=== PATIENT | male | born 1950 | race Caucasian/White ===

== ENCOUNTER 2018-01-02 17:10 | Inpatient (IN) | payer MEDICARE, OTHER ==
[2018-01-02 17:44] VITALS: BMI 27.8
[2018-01-02] MEDS ORDERED: Sodium Chloride 0.9% 500 ML IV ONE (17:46)
--- NOTE | 2018-01-02 17:50 | ED PDOC ---
Arrival/HPI - General Time Seen by Provider: 01/02/18 17:19 Historian: Patient, Family - History of Present Illness Time/Duration: 1 week Symptom Onset: Gradual Symptom Course: Worsening Severity Level: Severe Activities at Onset: Rest Associated Symptoms (Text): 01/02/18 17:48 Patient complains of a rectal mass for approximately one week. 3 days ago he was seen in the office by Dr. Nesbitt and had a right perirectal abscess incision and drainage. He was scheduled for follow-up tomorrow, but developed fever and pain and severe generalized weakness and fatigue over the last 2 days and presents to the emergency department for evaluation and treatment. He has poor by mouth intake. There has been some diarrhea. Some nausea but no vomiting. No genitourinary symptoms. Mild nonproductive cough. Past Medical History - Infectious Disease Hx of Infectious Diseases: None - Tetanus Immunization Tetanus Immunization: Unknown - Cardiac Hx Hypertension: Yes - Pulmonary Hx Respiratory Disorders: No - Neurological Hx Neurological Disorder: No - HEENT Hx HEENT Disorder: No - Renal Hx Renal Disorder: No - Endocrine/Metabolic Hx Diabetes Mellitus Type 2: Yes - Hematological/Oncological Hx Blood Disorders: No - Integumentary Hx Dermatological Disorder: No - Musculoskeletal/Rheumatological Hx Musculoskeletal Disorders: No Hx Falls: No - Gastrointestinal Hx Gastrointestinal Disorders: No - Genitourinary/Gynecological Hx Genitourinary Disorders: No - Psychiatric Hx Psychophysiologic Disorder: No Hx Substance Use: No - Past Surgical History Past Surgical History: Unable to Obtain - Surgical History Hx Amputation: No Hx Appendectomy: No Hx Cholecystectomy: No Hx Gastric Bypass Surgery: No Hx Hysterectomy: No Hx Inguinal Hernia Repair: No Hx Joint Replacement: No Hx Kidney Transplant: No Hx Liver Transplant: No Hx Mastectomy: No Hx Musculoskeletal Surgery: No Hx Open Heart Surgery: No Hx Orthopedic Surgery: No Hx Splenectomy: No Hx Valve Replacement: No - Anesthesia Hx Anesthesia Reactions: No - Suicidal Assessment Feels Threatened In Home Enviroment: No Family/Social History - Physician Review Nursing Documentation Reviewed: Yes Family/Social History: Unknown Family HX Smoking Status: Light Smoker < 10 Cigarettes Daily Hx Alcohol Use: No Hx Substance Use: No Allergies/Home Meds Allergies/Adverse Reactions: Allergies No Known Allergies Allergy (Verified 01/02/18 17:43) Review of Systems - Physician Review All systems were reviewed & negative as marked: Yes - Review of Systems Constitutional: Fatigue, Fevers Respiratory: Cough. absent: SOB, Sputum, Wheezing Cardiovascular: absent: Chest Pain, Palpitations, Syncope Gastrointestinal: Diarrhea, Nausea, Anorexia. absent: Abdominal Pain, Constipation, Vomiting Genitourinary Male: absent: Dysuria, Frequency, Hematuria Neurological: absent: Headache, Dizziness, Focal Weakness, Gait Changes Physical Exam Vital Signs Temp Pulse Resp BP Pulse Ox 01/02/18 19:15 98.4 F 91 H 20 144/87 97 01/02/18 17:44 98.3 F 101 H 18 161/101 H 98 Temperature: Afebrile Blood Pressure: Hypertensive Pulse: Regular Respiratory Rate: Normal Appearance: Positive for: Well-Appearing, Non-Toxic, Uncomfortable Pain Distress: Moderate Mental Status: Positive for: Alert and Oriented X 3 - Systems Exam Head: Present: Atraumatic, Normocephalic Pupils: Present: PERRL Extroacular Muscles: Present: EOMI Conjunctiva: Present: Normal Mouth: Present: Moist Mucous Membranes Pharnyx: No: ERYTHEMA, EXUDATE, TONSILS ENLARGED Neck: Present: Normal Range of Motion Respiratory/Chest: Present: Clear to Auscultation, Good Air Exchange. No: Respiratory Distress, Accessory Muscle Use Cardiovascular: Present: Regular Rate and Rhythm, Normal S1, S2. No: Murmurs Abdomen: No: Tenderness, Distention, Peritoneal Signs, Rebound, Guarding Rectal: Present: Other (Unable to tolerate penetration. Tender right perirectal abscess with serosanguineous and purulent drainage) Back: Present: Normal Inspection Upper Extremity: Present: Normal Inspection. No: Cyanosis, Edema Lower Extremity: Present: Normal Inspection. No: Edema Neurological: Present: GCS=15, CN II-XII Intact, Speech Normal, Motor Func Grossly Intact Skin: Present: Rashes (Chronic psoriatic rash) Psychiatric: Present: Alert, Oriented x 3, Normal Insight, Normal Concentration Medical Decision Making ED Course and Treatment: 01/02/18 18:37 Chest X-ray: Creator : Walker Jernigan MD IMPRESSION: No active disease. No significant interval change compared to the prior examination(s). 01/02/18 20:44 Surgery resident will admit to Dr. Nesbitt service - Lab Interpretations Lab Results: 01/02/18 18:00 01/02/18 18:00 Lab Results 01/02/18 19:25: Urine Color Straw, Urine Appearance Clear, Urine pH 7.0, Ur Specific [place] <= 1.005, Urine Protein Negative, Urine Glucose (UA) Negative, Urine Ketones Negative, Urine Blood Negative, Urine Nitrate Negative, Urine Bilirubin Negative, Urine Urobilinogen 0.2, Ur Leukocyte Esterase Negative 01/02/18 18:36: pO2 52, VBG pH 7.48 H, VBG pCO2 37.0 L, VBG HCO3 27.6, VBG Total CO2 28.7 H, VBG O2 Sat (Calc) 92.7 H, VBG Base Excess 4.0 H, VBG Potassium 3.5 L, Glucose 126 H, Lactate 1.4, FiO2 21.0, Sodium 136.0, Chloride 101.0, Venous Blood Potassium 3.5 L 01/02/18 18:00: Sodium 138, Potassium 3.5 L, Chloride 101, Carbon Dioxide 26, Anion Gap 15, BUN 10, Creatinine 0.7 L, Est GFR ( Amer) > 60, Est GFR ( Non-Af Amer) > 60, Random Glucose 120 H, Calcium 9.9, Magnesium 1.8, Total Bilirubin 0.6, AST 72 H, ALT 81 H, Alkaline Phosphatase 82, Total Protein 6.8, Albumin 3.8, Globulin 3.0, Albumin/Globulin Ratio 1.2 01/02/18 18:00: PT 11.6, INR 1.02, APTT 33.6 01/02/18 18:00: WBC 9.3 D, RBC 4.65, Hgb 14.1, Hct 40.6 L, MCV 87.3, MCH 30.3, MCHC 34.7, RDW 13.7, Plt Count 327, MPV 10.1, Gran % 73.4 H, Lymph % (Auto) 17.8 L, [place] % (Auto) 8.0 H, Eos % (Auto) 0.4 L, Baso % (Auto) 0.4, Gran # 6.84 H, Lymph # (Auto) 1.7, [place] # (Auto) 0.8 H, Eos # (Auto) 0.0, Baso # (Auto) 0.04 - RAD Interpretation Radiology Orders: 01/02/18 17:45 CHEST PORTABLE [RAD] Stat 01/02/18 18:05 PELVIS W/O PO OR IV CONTRAST [CT] Stat Chest one view as read by the radiologist shows cardiomegaly with no infiltrate and no effusion. CT scan of the pelvis as read by the V read radiology shows no acute findings. Crusher Operator: Radiologist - Medication Orders Current Medication Orders: Discontinued Medications Sodium Chloride (Sodium Chloride 0.9%) 500 mls @ 500 mls/hr IV ONCE ONE Stop: 01/02/18 18:45 Last Admin: 01/02/18 18:10 Dose: 500 mls/hr eMAR Start Stop Document 01/02/18 18:10 OCS (Rec: [facility]/02/18 18:10 [id number] Intravenous Solution Start Date 01/02/18 Start Time 18:10 End Date 01/02/18 End time 19:10 Total Infusion Time 60 Ketorolac Tromethamine (Toradol) 15 mg IVP ONCE ONE Stop: 01/02/18 18:01 Last Admin: 01/02/18 18:07 Dose: 15 mg MAR Pain Assessment Document 01/02/18 18:07 OCS (Rec: 01/02/18 18:09 [id number] Pain Reassessment Is this a pain reassessment? Yes Sleep Is patient sleeping during reassessment? No Presence of Pain Presence of Pain No Pain Scale Used Pain Scale Used Numeric Description Description Constant IVP Administration Document 01/02/18 18:07 OCS (Rec: 01/02/18 18:09 [id number] Charges for Administration # of IVP Administrations 1 Disposition/Present on Arrival - Present on Arrival Any Indicators Present on Arrival: No History of DVT/PE: No History of Uncontrolled Diabetes: No Urinary Catheter: No History of Decub. Ulcer: No History Surgical Site Infection Following: None - Disposition Have Diagnosis and Disposition been Completed?: Yes Diagnosis: Perirectal abscess Disposition: HOSPITALIZED Disposition Time: 20:44 Patient Plan: Observation Condition: GOOD Referrals: Yuri Albrecht MD [Primary Care Provider] - Follow up with primary
--- NOTE | 2018-01-02 18:09 | RAD ---
HISTORY: Sepsis Patient COMPARISON: 05/24/2015 FINDINGS: LUNGS: No active pulmonary disease. PLEURA: No significant pleural effusion identified, no pneumothorax apparent. CARDIOVASCULAR: Cardiomegaly. No evidence of acute, significant cardiovascular disease. Retrocardiac haziness likely technique/ artifact. OSSEOUS STRUCTURES: No significant abnormalities. VISUALIZED UPPER ABDOMEN: Normal. OTHER FINDINGS: None. IMPRESSION: No active disease. No significant interval change compared to the prior examination(s).
[2018-01-02 18:41] LABS: VENOUS BLOOD GAS PO2 52 mm/Hg (30-55); VENOUS BLOOD PH 7.48 (7.32-7.43)
[2018-01-02 18:56] LABS: BASO # 0.04 K/mm3 (0.0-2.0); BASO % 0.4 % (0.0-3.0); EOS % 0.4 % (1.5-5.0); GRAN # 6.84 (1.4-6.5); GRAN % 73.4 % (50.0-68.0); HEMOGLOBIN 14.1 g/dL (14.0-18.0); LYMPH # 1.7 (1.2-3.4); LYMPH % 17.8 % (22.0-35.0); MEAN CELL VOLUME 87.3 fl (80.0-105.0); MEAN CORPUSCULAR HEMOGLOBIN 30.3 pg (25.0-35.0); MEAN CORPUSCULAR HGB CONC 34.7 g/dl (31.0-37.0); MEAN PLATELET VOLUME 10.1 fl (7.0-11.0); MONO # 0.8 (0.1-0.6); RBC 4.65 10^6/uL (3.5-6.1); RED CELL DISTRIBUTION WIDTH 13.7 % (11.5-14.5); WHITE BLOOD COUNT 9.3 10^3/ul (4.5-11.0)
[2018-01-02 19:00] LABS: INR 1.02 (0.93-1.08); PARTIAL THROMBOPLASTIN TIME 33.6 Seconds (25.1-36.5); PROTHROMBIN TIME 11.6 SECONDS (9.4-12.5)
[2018-01-02 19:12] LABS: ALB/GLOB RATIO 1.2 (1.1-1.8); ALBUMIN 3.8 g/dL (3.0-4.8); ALT/SGPT 81 U/L (7-56); AST/SGOT 72 U/L (17-59); BLOOD UREA NITROGEN 10 mg/dL (7-21); CALCIUM 9.9 mg/dL (8.4-10.5); GFR AFRICAN-AMERICAN > 60; GFR NON-AFRICAN AMERICAN > 60
[2018-01-02 19:44] LABS: URINE BILIRUBIN NEGATIVE (NEGATIVE); URINE BLOOD NEGATIVE (NEGATIVE); URINE GLUCOSE (UA) NEGATIVE (NEGATIVE); URINE LEUKOCYTE ESTERASE NEGATIVE Leu/uL (NEGATIVE); URINE PROTEIN NEGATIVE mg/dL (<30 mg/dL); URINE UROBILINOGEN 0.2 E.U./dL (<1 E.U./dL)
[2018-01-02 19:45] LABS: URINE APPEARANCE CLEAR (CLEAR); URINE COLOR STRAW (YELLOW)
--- NOTE | 2018-01-02 21:01 | CP.PCM.HP ---
History of Present Illness - History of Present Illness History of Present Illness: H&P Surgery: Dr. Nesbitt CC: dontae-rectal pain, not feeling well HPI: Patient is a 67 y/o male w/ pmhx of DM, HTN, CAD and hemorrhoids who presents complaining of dontae-rectal pain x 3days. He reports seeing Dr. Nesbitt in office about 3 days ago for similar complaints. He was found to have a thrombosed external hemorrhoid which was lanced at that time. Patient was sent home with percocet for pain and Amoxicillin abx. Patient reports taking abx however over the past three days the pain was persistent with a pus like discharge from incision site. He reports subjective fevers and chills. He reports decreased appetite. He states that his last BM was today and was diarrhea. PMH: as above PSH: cardiac stent, denies taking ASA or plavix at home Social: reports smoking 5-6 cigs per day, denies ETOH or drug use Fam: noncontributory Present on Admission - Present on Admission Any Indicators Present on Admission: No Review of Systems - Review of Systems All systems: reviewed and no additional remarkable complaints except Review of Systems: unless stated in HPI - Constitutional Constitutional: Chills, Fever, Weakness - EENT Eyes: absent: Blurred Vision, Change in Vision Ears: absent: Disequilibrium, Dizziness Nose/Mouth/Throat: absent: Nasal Congestion, Nasal Trauma - Cardiovascular Cardiovascular: absent: Chest Pain, Dyspnea - Respiratory Respiratory: absent: Cough, Wheezing - Gastrointestinal Gastrointestinal: Constipation. absent: Abdominal Pain, Bloating, Fecal Incontinence, Hematochezia, Melena, Nausea, Vomiting - Genitourinary Genitourinary: absent: Hematuria, Pyuria - Musculoskeletal Musculoskeletal: absent: Joint Swelling, Muscle Weakness - Integumentary Integumentary: absent: Skin Ulcer, Sores - Neurological Neurological: absent: Disequilibrium, Dizziness - Psychiatric Psychiatric: absent: Anxiety, Depression - Endocrine Endocrine: absent: Polydipsia, Polyphagia - Hematologic/Lymphatic Hematologic: absent: Easy Bleeding, Easy Bruising Past Patient History - Infectious Disease Hx of Infectious Diseases: None - Tetanus Immunizations Tetanus Immunization: Unknown - Past Social History Smoking Status: Light Smoker < 10 Cigarettes Daily - CARDIAC Hx Hypertension: Yes - PULMONARY Hx Respiratory Disorders: No - NEUROLOGICAL Hx Neurological Disorder: No - HEENT Hx HEENT Problems: No - RENAL Hx Chronic Kidney Disease: No - ENDOCRINE/METABOLIC Hx Diabetes Mellitus Type 2: Yes - HEMATOLOGICAL/ONCOLOGICAL Hx Blood Disorders: No - INTEGUMENTARY Hx Dermatological Problems: No - MUSCULOSKELETAL/RHEUMATOLOGICAL Hx Musculoskeletal Disorders: No Hx Falls: No - GASTROINTESTINAL Hx Gastrointestinal Disorders: No - GENITOURINARY/GYNECOLOGICAL Hx Genitourinary Disorders: No - PSYCHIATRIC Hx Psychophysiologic Disorder: No Hx Substance Use: No - SURGICAL HISTORY Hx Amputation: No Hx Appendectomy: No Hx Cholecystectomy: No Hx Gastric Bypass Surgery: No Hx Hysterectomy: No Hx Joint Replacement: No Hx Kidney Transplant: No Hx Liver Transplant: No Hx Mastectomy: No Hx Musculoskeletal Surgery: No Hx Open Heart Surgery: No Hx Orthopedic Surgery: No Hx Splenectomy: No Hx Valve Replacement: No - ANESTHESIA Hx Anesthesia Reactions: No Meds Allergies/Adverse Reactions: Allergies Allergy/AdvReac Type Severity Reaction Status Date / Time No Known Allergies Allergy Verified 01/02/18 17:43 Physical Exam - Constitutional Appears: Non-toxic, No Acute Distress - Head Exam Head Exam: ATRAUMATIC, NORMOCEPHALIC - Eye Exam Eye Exam: EOMI, Normal appearance - ENT Exam ENT Exam: Mucous Membranes Moist - Respiratory Exam Respiratory Exam: NORMAL BREATHING PATTERN. absent: Respiratory Distress - Cardiovascular Exam Cardiovascular Exam: REGULAR RHYTHM. absent: Tachycardia - GI/Abdominal Exam GI & Abdominal Exam: Soft. absent: Distended, Tenderness - Rectal Exam Rectal Exam: absent: Bloody Stool, Fecal Impaction Additional comments: right inferior rectal incision noted with purulent exudate noted, no abscess collection palpation. Perirectal area is tender with erythema noted around incision site. sphincter good tone, no stool in rectal vault with internal hemorrhoids felt on inferior lateral wall. - Extremities Exam Extremities exam: Positive for: normal inspection. Negative for: calf tenderness - Neurological Exam Neurological exam: Alert, Oriented x3 - Psychiatric Exam Psychiatric exam: Normal Affect, Normal Mood - Skin Skin Exam: Dry, Normal Color, Warm Results - Vital Signs Recent Vital Signs: Last Vital Signs Temp 98.4 F 01/02/18 19:15 Pulse 91 H 01/02/18 19:15 Resp 20 01/02/18 19:15 BP 144/87 01/02/18 19:15 Pulse Ox 97 01/02/18 19:15 - Labs Result Diagrams: 01/02/18 18:00 01/02/18 18:00 Labs: Laboratory Results - last 24 hr 01/02/18 01/02/18 01/02/18 18:00 18:00 18:00 WBC 9.3 D RBC 4.65 Hgb 14.1 Hct 40.6 L MCV 87.3 MCH 30.3 MCHC 34.7 RDW 13.7 Plt Count 327 MPV 10.1 Gran % 73.4 H Lymph % (Auto) 17.8 L [place] % (Auto) 8.0 H Eos % (Auto) 0.4 L Baso % (Auto) 0.4 Gran # 6.84 H Lymph # (Auto) 1.7 [place] # (Auto) 0.8 H Eos # (Auto) 0.0 Baso # (Auto) 0.04 PT 11.6 INR 1.02 APTT 33.6 pO2 VBG pH VBG pCO2 VBG HCO3 VBG Total CO2 VBG O2 Sat (Calc) VBG Base Excess VBG Potassium Glucose Lactate FiO2 Sodium 138 Potassium 3.5 L Chloride 101 Carbon Dioxide 26 Anion Gap 15 BUN 10 Creatinine 0.7 L Est GFR ( Amer) > 60 Est GFR (Non-Af Amer) > 60 Random Glucose 120 H Calcium 9.9 Magnesium 1.8 Total Bilirubin 0.6 AST 72 H ALT 81 H Alkaline Phosphatase 82 Total Protein 6.8 Albumin 3.8 Globulin 3.0 Albumin/Globulin Ratio 1.2 Venous Blood Potassium Urine Color Urine Appearance Urine pH Ur Specific [place] Urine Protein Urine Glucose (UA) Urine Ketones Urine Blood Urine Nitrate Urine Bilirubin Urine Urobilinogen Ur Leukocyte Esterase 01/02/18 01/02/18 18:36 19:25 WBC RBC Hgb Hct MCV MCH MCHC RDW Plt Count MPV Gran % Lymph % (Auto) [place] % (Auto) Eos % (Auto) Baso % (Auto) Gran # Lymph # (Auto) [place] # (Auto) Eos # (Auto) Baso # (Auto) PT INR APTT pO2 52 VBG pH 7.48 H VBG pCO2 37.0 L VBG HCO3 27.6 VBG Total CO2 28.7 H VBG O2 Sat (Calc) 92.7 H VBG Base Excess 4.0 H VBG Potassium 3.5 L Glucose 126 H Lactate 1.4 FiO2 21.0 Sodium 136.0 Potassium Chloride 101.0 Carbon Dioxide Anion Gap BUN Creatinine Est GFR ( Amer) Est GFR (Non-Af Amer) Random Glucose Calcium Magnesium Total Bilirubin AST ALT Alkaline Phosphatase Total Protein Albumin Globulin Albumin/Globulin Ratio Venous Blood Potassium 3.5 L Urine Color Straw Urine Appearance Clear Urine pH 7.0 Ur Specific [place] <= 1.005 Urine Protein Negative Urine Glucose (UA) Negative Urine Ketones Negative Urine Blood Negative Urine Nitrate Negative Urine Bilirubin Negative Urine Urobilinogen 0.2 Ur Leukocyte Esterase Negative - Imaging and Cardiology CT scan - pelvis Additional comment: no abscess in pelvis or dontae-rectal area. evidence of cellulitic changes dontae- rectum Assessment & Plan - Assessment and Plan (Free Text) Assessment: 67 y/o male w/ dontae-rectal cellulitis s/p external hemorrhoid eloisa Plan: -failed outpatient abx, admit for observation and IV abx -start rocephin/flagy -ok for diet -d/c IVF -restart home meds -medical consult with primary physician Dr. Loera -Sitz baths BID -keep dontae-rectal area clean and dry -no need for surgical intervention at this time -ok for DVT ppx -d/w Dr. Laz Machado PGY3 - Date & Time Date: 01/02/18 Time: 21:07
[2018-01-02] MEDS: cefTRIAXone 1 gm 1 GM/100 ML BAG IVPB SCH (21:14)
[2018-01-03] MEDS: metroNIDAZOLE IV 500 mg/100 ml 500 MG/100 ML BAG IVPB SCH ×4 (00:54→21:37)
[2018-01-03] MEDS: Insulin Reg-LOW-Coverage SC SCH ×5 (00:55→22:00)
[2018-01-03 07:08] LABS: BASO # 0.04 K/mm3 (0.0-2.0); BASO % 0.5 % (0.0-3.0); EOS # 0.1 (0.0-0.7); EOS % 0.6 % (1.5-5.0); GRAN # 5.66 (1.4-6.5); GRAN % 68.2 % (50.0-68.0); HEMOGLOBIN 13.6 g/dL (14.0-18.0); LYMPH # 1.6 (1.2-3.4); LYMPH % 19.7 % (22.0-35.0); MEAN CELL VOLUME 87.4 fl (80.0-105.0); MEAN CORPUSCULAR HEMOGLOBIN 29.6 pg (25.0-35.0); MEAN CORPUSCULAR HGB CONC 33.9 g/dl (31.0-37.0); MEAN PLATELET VOLUME 9.5 fl (7.0-11.0); MONO # 0.9 (0.1-0.6); RBC 4.59 10^6/uL (3.5-6.1); RED CELL DISTRIBUTION WIDTH 13.8 % (11.5-14.5); WHITE BLOOD COUNT 8.3 10^3/ul (4.5-11.0)
--- NOTE | 2018-01-03 07:24 | CP.PCM.PN ---
Subjective - Date & Time of Evaluation Date of Evaluation: 01/03/18 Time of Evaluation: 07:20 - Subjective Subjective: Surgery Patient seen and examined. No acute events. Denies fever, diarrhea, nausea. C/O rectal pain. + ambulating. + void. Objective - Vital Signs/Intake and Output Vital Signs (last 24 hours): Temp Pulse Resp BP Pulse Ox 98.3 F 88 18 146/99 H 97 01/02/18 21:15 01/02/18 21:15 01/02/18 22:14 01/03/18 00:57 01/02/18 21:15 Intake and Output: 01/03/18 01/03/18 06:59 18:59 Output Total 150 Balance -150 - Medications Medications: Current Medications Acetaminophen (Tylenol 325mg Tab) 650 mg PO Q6 PRN PRN Reason: Pain, Mild (1-3) Docusate Sodium (Colace) 100 mg PO BID [facility] Enoxaparin Sodium (Lovenox) 40 mg SC DAILY [facility] PRN Reason: Protocol Glimepiride (Amaryl) 4 mg PO DAILY [facility] Hydrochlorothiazide (Hydrodiuril) 25 mg PO DAILY [facility] Metronidazole (Flagyl) 500 mg in 100 mls @ 100 mls/hr IVPB Q8 [facility] PRN Reason: Protocol Last Admin: 01/03/18 06:36 Dose: 100 mls/hr Ceftriaxone Sodium (Rocephin 1 Gram Ivpb) 1 gm in 100 mls @ 100 mls/hr IVPB DAILY [facility] PRN Reason: Protocol Last Admin: 01/02/18 21:14 Dose: 100 mls/hr Insulin Human Regular (Humulin R Low) 0 units SC ACHS [facility] PRN Reason: Protocol Last Admin: 01/03/18 00:55 Dose: Not Given Ketorolac Tromethamine (Toradol) 30 mg IVP Q6 PRN PRN Reason: Pain, moderate (4-7) Metformin HCl (Glucophage) 500 mg PO DAILY [facility] Metoprolol Tartrate (Lopressor) 50 mg PO BID [facility] Last Admin: 01/02/18 21:14 Dose: 50 mg Ondansetron HCl (Zofran Inj) 4 mg IVP Q6 PRN PRN Reason: Nausea/Vomiting - Labs Labs: 01/03/18 07:01 PT 11.6 SECONDS (9.4-12.5) 01/02/18 18:00 INR 1.02 (0.93-1.08) 01/02/18 18:00 APTT 33.6 Seconds (25.1-36.5) 01/02/18 18:00 - Constitutional Appears: No Acute Distress - Head Exam Head Exam: ATRAUMATIC, NORMAL INSPECTION, NORMOCEPHALIC - Eye Exam Eye Exam: EOMI, Normal appearance, PERRL Pupil Exam: NORMAL ACCOMODATION, PERRL - ENT Exam ENT Exam: Mucous Membranes Moist, Normal Exam - Neck Exam Neck Exam: Full ROM, Normal Inspection. absent: Lymphadenopathy - Respiratory Exam Respiratory Exam: Clear to Ausculation Bilateral, NORMAL BREATHING PATTERN - Cardiovascular Exam Cardiovascular Exam: REGULAR RHYTHM, +S1, +S2. absent: Murmur - GI/Abdominal Exam GI & Abdominal Exam: Soft, Normal Bowel Sounds. absent: Distended, Tenderness - Rectal Exam Rectal Exam: absent: Black Stool, Bloody Stool, Hemorrhoids, Fecal Impaction Additional comments: R perianal incision draining purulent fliuds. 1x1x0.5cm. No active bleeding - Extremities Exam Extremities Exam: Full ROM, Normal Capillary Refill, Normal Inspection. absent : Joint Swelling, Pedal Edema - Back Exam Back Exam: NORMAL INSPECTION - Neurological Exam Neurological Exam: Alert, Awake, CN II-XII Intact, Normal Gait, Oriented x3 - Psychiatric Exam Psychiatric exam: Normal Affect, Normal Mood - Skin Skin Exam: Erythema, Warm. absent: Dry, Intact, Normal Color Additional comments: 10x8cm eryhtema R buttucks
[2018-01-03 07:28] LABS: BLOOD UREA NITROGEN 11 mg/dL (7-21); CALCIUM 9.1 mg/dL (8.4-10.5); GFR AFRICAN-AMERICAN > 60; GFR NON-AFRICAN AMERICAN > 60
--- NOTE | 2018-01-03 09:38 | CT ---
PROCEDURE: CT Pelvis without contrast HISTORY: right perirectal mass COMPARISON: None. TECHNIQUE: Contiguous axial images of the pelvis . No intravenous or oral contrast given as requested. Coronal and sagittal reformats generated. Radiation dose: Total exam DLP = 305.43 mGy-cm. This CT exam was performed using one or more of the following dose reduction techniques: Automated exposure control, adjustment of the mA and/or kV according to patient size, and/or use of iterative reconstruction technique. FINDINGS: BLADDER: Unremarkable. No mass. REPRODUCTIVE ORGANS: Prostate gland appears moderately enlarged. VISUALIZED BOWEL: Mild fecal loading is seen throughout sigmoid colon. The rectum is collapsed and circumferential mural thickening is not excluded particularly at the mid and distal portions. Clinically correlate further. Perirectal and presacral fat appear grossly on remarkable. Normal-appearing appendix. PERITONEUM: Unremarkable, as visualized. No free fluid. No free air. LYMPH NODES: No gross pelvic side wall lymphadenopathy or peritoneal lymphadenopathy. BONES: There are a few small sclerotic densities which are nonspecific and medial bilateral iliac bones and anterior left iliac bone as well. VASCULATURE: Atherosclerotic inferior aortic iliac femoral vasculature is appreciated which is limited evaluation due lack of intravenous contrast. OTHER FINDINGS: None. IMPRESSION: Circumferential mural thickening is difficult to exclude due to rectal collapse at the mid inferior rectum with no perirectal fatty reaction or mass grossly appreciable. Presacral soft tissue is unremarkable as well. Further clinical correlation is advised. Enlarged prostate gland. A few small sclerotic densities are seen scattered infrequently at the medial bilateral iliac bones and anterior left iliac bone as well which are nonspecific and poorly characterized due to their sub cm size.
[2018-01-03] MEDS: cefTRIAXone 1 gm 1 GM/100 ML BAG IVPB SCH (10:08)
[2018-01-03] MEDS: Enoxaparin 40 mg Syringe SC SCH (10:09)
--- NOTE | 2018-01-04 05:42 | CON ---
DATE: 01/03/2018 REFERRING PHYSICIAN: Dr. Nesbitt. REASON FOR CONSULTATION: Diabetes type 2, hypertension and BPH management. CHIEF COMPLAINT AND HISTORY OF PRESENT ILLNESS: This is a 67-year-old male who is having rectal pain, he was having external hemorrhoids. The patient was seen initially by me and I have started the patient on antibiotics. He was also sent to Dr. Nesbitt for evaluation. The patient had thrombosed external hemorrhoids, which was . He had gone home with Percocet and antibiotics. He states that the pain continued over the last few days. He has been having pus coming from each site. The patient was admitted to the hospital for further management. The patient is currently comfortable. He states that the pain is there, but it is manageable. He has no fevers or chills. No nausea, no vomiting. ALLERGIES: NO KNOWN DRUG ALLERGIES. PAST MEDICAL HISTORY: As above, coronary artery disease with stenting. SOCIAL HISTORY: He does smoke about 5 to 6 cigarettes a day. Denies alcohol or drug use. FAMILY HISTORY: Noncontributory. PHYSICAL EXAMINATION: VITAL SIGNS: Temperature is 98.56, pulse is 78, blood pressure is 157/97, respirations 20, O2 saturation 98%. GENERAL: The patient lying in bed, uncomfortable, and in no acute distress. HEENT: Atraumatic and normocephalic. Anicteric sclerae. Moist mucosa. [place] conjunctivae. No oral lesions. NECK: No JVD, anterior and posterior adenopathy, thyromegaly, or bruits. CARDIOVASCULAR: S1 and S2 regular. No murmur, rubs, or gallop. LUNGS: Clear to auscultation bilaterally. No wheezes, rales, or rhonchi. ABDOMEN: Bowel sounds are positive. Soft, nontender and nondistended. No hepatosplenomegaly. No rebound and no guarding. EXTREMITIES: No cyanosis, clubbing, or edema. NEUROLOGIC: No facial asymmetry. Tongue is midline. No uvula deviation. Power is 5/5 upper extremity and lower extremity. Sensation intact in upper extremity and lower extremity. PSYCHIATRIC: She is awake, alert and oriented x3. No anxiety or depression. She has normal affect. GENITOURINARY: No CVA tenderness. VASCULAR: 2+ pulses in the carotid pulses and pedal pulses. SKIN: No erythema or nodules. SPINE: Shows normal curvature. LABORATORY DATA: Labs have been reviewed. White count of 9.3, hemoglobin is 14.1. The patient has chemistry that shows creatinine of 0.8. Urine shows blood is negative, nitrates are negative and bilirubin is negative. Chest x-ray, no active disease. CT of the pelvis done shows circumferential middle thickening in the rectal area, also enlarged prostate. ASSESSMENT: 1. Perirectal cellulitis. 2. External hemorrhoids, status post incision. 3. Diabetes type 2. 4. Benign prostatic hypertrophy. PLAN: The patient is currently comfortable. He is on insulin, he is on metformin for diabetes. The patient is on Flagyl. He is on Amaryl for his diabetes. He is on Rocephin for antibiotics. The patient is on a heart-healthy diet. He is going to getting Sitz bath. We will continue to follow as needed. Yuri Albrecht MD
[2018-01-04] MEDS: metroNIDAZOLE IV 500 mg/100 ml 500 MG/100 ML BAG IVPB SCH ×3 (06:00→21:34)
[2018-01-04] MEDS: Insulin Reg-LOW-Coverage SC SCH ×4 (08:08→21:48)
[2018-01-04] MEDS: cefTRIAXone 1 gm 1 GM/100 ML BAG IVPB SCH (09:07)
[2018-01-04] MEDS: Enoxaparin 40 mg Syringe SC SCH (09:08)
--- NOTE | 2018-01-04 10:12 | PN ---
DATE: SUBJECTIVE: The patient has no complaints of any chest pain, no shortness of breath, no headaches. He says the pain is controlled. PHYSICAL EXAMINATION: VITAL SIGNS: Temperature is 98.2, pulse of 84, blood pressure 114/74, respirations 20. GENERAL: The patient is lying in bed, flat, comfortable. HEENT: No oral lesion. Anicteric sclerae. Moist mucosa. NECK: No JVD, adenopathy, or thyromegaly. CARDIOVASCULAR: S1 and S2, regular. No murmurs, rubs, or gallops. LUNGS: Clear to auscultation bilaterally. No wheeze, rales, or rhonchi. ABDOMEN: Bowel sounds are positive, soft, nontender and nondistended. EXTREMITIES: No cyanosis, clubbing or edema. LABS: White count of 8.3, hemoglobin 13.6. Creatinine 0.8. ASSESSMENT: 1. Perirectal cellulitis. 2. External hemorrhoids status post incision. 3. Diabetes type 2. 4. Benign prostatic hypertrophy. PLAN: The patient is currently on Amaryl and metformin for his diabetes. He is on insulin sliding scale. The patient's fingersticks have been controlled. He is on Colace for constipation. He is on hydrochlorothiazide for his hypertension. He is on Rocephin for antibiotics. He is on a heart-healthy diet. He has blood cultures and wound cultures that are being done. The patient's blood cultures are negative. The patient's wound cultures, final cultures are pending. Yuri Albrecht MD
--- NOTE | 2018-01-04 10:33 | CP.PCM.PN ---
Subjective - Date & Time of Evaluation Date of Evaluation: 01/04/18 Time of Evaluation: 10:32 - Subjective Subjective: Surgery: Dr. Nesbitt Patient reports feeling better today. He reports improvement of pain. Denies f/c /n/v. Complains of drainage from the rectal area, overall decreased. Objective - Vital Signs/Intake and Output Vital Signs (last 24 hours): Temp Pulse Resp BP Pulse Ox 97.8 F 69 18 139/86 97 01/04/18 08:23 01/04/18 09:09 01/04/18 08:23 01/04/18 09:09 01/04/18 08:23 Intake and Output: 01/04/18 01/04/18 06:59 18:59 Intake Total 640 Balance 640 - Medications Medications: Current Medications Acetaminophen (Tylenol 325mg Tab) 650 mg PO Q6 PRN PRN Reason: Pain, Mild (1-3) Docusate Sodium (Colace) 100 mg PO BID [facility] Last Admin: 01/04/18 09:08 Dose: 100 mg Enoxaparin Sodium (Lovenox) 40 mg SC DAILY [facility] PRN Reason: Protocol Last Admin: 01/04/18 09:08 Dose: 40 mg Glimepiride (Amaryl) 4 mg PO DAILY [facility] Last Admin: 01/04/18 09:08 Dose: 4 mg Hydrochlorothiazide (Hydrodiuril) 25 mg PO DAILY [facility] Last Admin: 01/04/18 09:08 Dose: 25 mg Metronidazole (Flagyl) 500 mg in 100 mls @ 100 mls/hr IVPB Q8 [facility] PRN Reason: Protocol Last Admin: 01/04/18 06:00 Dose: 100 mls/hr Ceftriaxone Sodium (Rocephin 1 Gram Ivpb) 1 gm in 100 mls @ 100 mls/hr IVPB DAILY [facility] PRN Reason: Protocol Last Admin: 01/04/18 09:07 Dose: 100 mls/hr Micafungin Sodium 100 mg/ (Sodium Chloride) 100 mls @ 100 mls/hr IV DAILY [facility] PRN Reason: Protocol Stop: 01/11/18 10:01 Insulin Human Regular (Humulin R Low) 0 units SC ACHS [facility] PRN Reason: Protocol Last Admin: 01/04/18 08:08 Dose: 1 units Ketorolac Tromethamine (Toradol) 30 mg IVP Q6 PRN PRN Reason: Pain, moderate (4-7) Metformin HCl (Glucophage) 500 mg PO DAILY [facility] Last Admin: 01/04/18 09:08 Dose: 500 mg Metoprolol Tartrate (Lopressor) 50 mg PO BID [facility] Last Admin: 01/04/18 09:09 Dose: 50 mg Ondansetron HCl (Zofran Inj) 4 mg IVP Q6 PRN PRN Reason: Nausea/Vomiting Last Admin: 01/03/18 18:54 Dose: 4 mg Tamsulosin HCl (Flomax) 0.4 mg PO DAILY [facility] Last Admin: 01/04/18 09:08 Dose: 0.4 mg - Labs Labs: PT 11.6 SECONDS (9.4-12.5) 01/02/18 18:00 INR 1.02 (0.93-1.08) 01/02/18 18:00 APTT 33.6 Seconds (25.1-36.5) 01/02/18 18:00 - Constitutional Appears: Non-toxic, No Acute Distress - Head Exam Head Exam: ATRAUMATIC, NORMOCEPHALIC - Eye Exam Eye Exam: EOMI, Normal appearance - ENT Exam ENT Exam: Mucous Membranes Moist - Respiratory Exam Respiratory Exam: NORMAL BREATHING PATTERN. absent: Respiratory Distress - Cardiovascular Exam Cardiovascular Exam: REGULAR RHYTHM. absent: Tachycardia - GI/Abdominal Exam GI & Abdominal Exam: Soft. absent: Distended, Tenderness - Rectal Exam Additional comments: seropurulent drainage from inferior rectal incision, less cellulitis - Extremities Exam Extremities Exam: Normal Inspection. absent: Calf Tenderness - Neurological Exam Neurological Exam: Alert, Awake - Psychiatric Exam Psychiatric exam: Normal Affect, Normal Mood - Skin Skin Exam: Dry, Normal Color, Warm Assessment and Plan - Assessment and Plan (Free Text) Assessment: 67 y/o male s/p eloisa of thrombosed hemorrhoid Plan: -cont dry gauze to dontae-rectal area -cont abx -await ID recs -sitz baths -further recs per Dr. Laz Machado PGY3
[2018-01-04] MEDS: Micafungin 100 MG in Sodium Chloride 0.9% 100 ML IV SCH (11:00)
--- NOTE | 2018-01-04 15:10 | CP.PCM.CON ---
History of Present Illness - History of Present Illness History of Present Illness: 67 year old male with PMH of DM, HTN, CAD, hemorrhoids, came in complaining of continued pain in the perirectal area, malaise and generalized weakness for about 3 days. He was initially seen by Surgery for a thrombosed hemorrhoid which was incised and he was sent home with pain meds and Amoxicillin. He noted pus-like discharge coming from the perirectal area, with associated subjective fever and chills. He also has anorexia. He denies headache or dizziness, no cough or rhinorrhea, no sore throat, no abdominal pain, no diarrhea, no chest pain, no SOB. Blood cx taken on admission is showing yeast. There are gram negative bacilli and gram negative bacilli in the perirectal wound. Infectious Diseases consult is requested to further evaluate and manage. Review of Systems - Review of Systems All systems: reviewed and no additional remarkable complaints except (as per HPI ) Past Patient History - Infectious Disease Hx of Infectious Diseases: None - Tetanus Immunizations Tetanus Immunization: Unknown - Past Social History Smoking Status: Current Some Days Smoker - CARDIAC Hx Cardia Arrhythmia: Yes Hx Hypertension: Yes - PULMONARY Hx Pneumonia: Yes - NEUROLOGICAL Hx Neurological Disorder: No - HEENT Hx HEENT Problems: No - RENAL Hx Chronic Kidney Disease: No - ENDOCRINE/METABOLIC Hx Diabetes Mellitus Type 2: Yes - HEMATOLOGICAL/ONCOLOGICAL Hx Blood Disorders: No - INTEGUMENTARY Hx Dermatological Problems: No - MUSCULOSKELETAL/RHEUMATOLOGICAL Hx Falls: Yes - GASTROINTESTINAL Hx Gastroesophageal Reflux: Yes - GENITOURINARY/GYNECOLOGICAL Hx Genitourinary Disorders: No - PSYCHIATRIC Hx Psychophysiologic Disorder: No Hx Substance Use: No - SURGICAL HISTORY Hx Cardiac Catheterization: Yes - ANESTHESIA Hx Anesthesia Reactions: No Meds Allergies/Adverse Reactions: Allergies Allergy/AdvReac Type Severity Reaction Status Date / Time No Known Allergies Allergy Verified 01/02/18 17:43 - Medications Medications: Current Medications Acetaminophen (Tylenol 325mg Tab) 650 mg PO Q6 PRN PRN Reason: Pain, Mild (1-3) Docusate Sodium (Colace) 100 mg PO BID [facility] Last Admin: 01/03/18 17:04 Dose: Not Given Enoxaparin Sodium (Lovenox) 40 mg SC DAILY [facility] PRN Reason: Protocol Last Admin: 01/03/18 10:09 Dose: 40 mg Glimepiride (Amaryl) 4 mg PO DAILY [facility] Last Admin: 01/03/18 10:11 Dose: 4 mg Hydrochlorothiazide (Hydrodiuril) 25 mg PO DAILY [facility] Last Admin: 01/03/18 10:10 Dose: 25 mg Metronidazole (Flagyl) 500 mg in 100 mls @ 100 mls/hr IVPB Q8 [facility] PRN Reason: Protocol Last Admin: 01/04/18 06:00 Dose: 100 mls/hr Ceftriaxone Sodium (Rocephin 1 Gram Ivpb) 1 gm in 100 mls @ 100 mls/hr IVPB DAILY [facility] PRN Reason: Protocol Last Admin: 01/03/18 10:08 Dose: 100 mls/hr Insulin Human Regular (Humulin R Low) 0 units SC ACHS [facility] PRN Reason: Protocol Last Admin: 01/04/18 08:08 Dose: 1 units Ketorolac Tromethamine (Toradol) 30 mg IVP Q6 PRN PRN Reason: Pain, moderate (4-7) Metformin HCl (Glucophage) 500 mg PO DAILY [facility] Last Admin: 01/03/18 10:09 Dose: 500 mg Metoprolol Tartrate (Lopressor) 50 mg PO BID [facility] Last Admin: 01/03/18 17:01 Dose: 50 mg Ondansetron HCl (Zofran Inj) 4 mg IVP Q6 PRN PRN Reason: Nausea/Vomiting Last Admin: 01/03/18 18:54 Dose: 4 mg Tamsulosin HCl (Flomax) 0.4 mg PO DAILY [facility] Last Admin: 01/03/18 10:09 Dose: 0.4 mg Physical Exam - Constitutional Appears: Non-toxic - Head Exam Head Exam: NORMAL INSPECTION - ENT Exam ENT Exam: Mucous Membranes Moist - Neck Exam Neck exam: Negative for: Lymphadenopathy, Meningismus - Respiratory Exam Respiratory Exam: absent: Rales, Rhonchi - Cardiovascular Exam Cardiovascular Exam: +S1, +S2 - GI/Abdominal Exam GI & Abdominal Exam: Soft. absent: Tenderness - Back Exam Additional comments: perirectal area with dressings in place Results - Vital Signs Recent Vital Signs: Last Vital Signs Temp 97.8 F 01/04/18 08:23 Pulse 69 01/04/18 08:23 Resp 18 01/04/18 08:23 BP 139/86 01/04/18 08:23 Pulse Ox 97 01/04/18 08:23 - Labs Result Diagrams: 01/03/18 07:01 01/03/18 07:01 Labs: Laboratory Results - last 24 hr 01/03/18 01/03/18 01/04/18 16:04 21:44 06:56 POC Glucose (mg/dL) 106 103 169 H Assessment & Plan - Assessment and Plan (Free Text) Plan: Assessment Fungemia, source unclear perirectal abscess with associated thrombosed hemorrhoids DM HTN CAD hemorrhoids Plan Continue Rocephin, Flagyl and added MYcamine pending identification and sensitivities of the bacteria in the perirectral abscess follow up identification of the yeast in the blood - will repeat blood cx will monitor clinically
[2018-01-05] MEDS: metroNIDAZOLE IV 500 mg/100 ml 500 MG/100 ML BAG IVPB SCH ×3 (06:26→22:03)
[2018-01-05] MEDS: cefTRIAXone 1 gm 1 GM/100 ML BAG IVPB SCH (10:11)
[2018-01-05] MEDS: Insulin Reg-LOW-Coverage SC SCH ×4 (10:12→22:01)
[2018-01-05] MEDS: Enoxaparin 40 mg Syringe SC SCH (10:12)
[2018-01-05] MEDS: Micafungin 100 MG in Sodium Chloride 0.9% 100 ML IV SCH (11:36)
--- NOTE | 2018-01-05 12:13 | CP.PCM.PN ---
Subjective - Date & Time of Evaluation Date of Evaluation: 01/05/18 Time of Evaluation: 12:11 - Subjective Subjective: Surgery. REctal pain improved. No more draining. Denies Fever, nausea, diarrhea. TOlerating diet. + ambulating. + void Objective - Vital Signs/Intake and Output Vital Signs (last 24 hours): Temp Pulse Resp BP Pulse Ox 97.9 F 70 18 136/93 H 99 01/05/18 06:00 01/05/18 10:13 01/05/18 06:00 01/05/18 10:13 01/05/18 06:00 Intake and Output: 01/05/18 01/05/18 06:59 18:59 Intake Total 1260 Balance 1260 - Medications Medications: Current Medications Acetaminophen (Tylenol 325mg Tab) 650 mg PO Q6 PRN PRN Reason: Pain, Mild (1-3) Docusate Sodium (Colace) 100 mg PO BID [facility] Last Admin: 01/05/18 10:13 Dose: 100 mg Enoxaparin Sodium (Lovenox) 40 mg SC DAILY [facility] PRN Reason: Protocol Last Admin: 01/05/18 10:12 Dose: 40 mg Glimepiride (Amaryl) 4 mg PO DAILY [facility] Last Admin: 01/05/18 10:13 Dose: 4 mg Hydrochlorothiazide (Hydrodiuril) 25 mg PO DAILY [facility] Last Admin: 01/05/18 10:14 Dose: 25 mg Metronidazole (Flagyl) 500 mg in 100 mls @ 100 mls/hr IVPB Q8 [facility] PRN Reason: Protocol Last Admin: 01/05/18 06:26 Dose: 100 mls/hr Ceftriaxone Sodium (Rocephin 1 Gram Ivpb) 1 gm in 100 mls @ 100 mls/hr IVPB DAILY [facility] PRN Reason: Protocol Last Admin: 01/05/18 10:11 Dose: 100 mls/hr Micafungin Sodium 100 mg/ (Sodium Chloride) 100 mls @ 100 mls/hr IV DAILY [facility] PRN Reason: Protocol Stop: 01/11/18 10:01 Last Admin: 01/05/18 11:36 Dose: 100 mls/hr Insulin Human Regular (Humulin R Low) 0 units SC ACHS [facility] PRN Reason: Protocol Last Admin: 01/05/18 12:01 Dose: 3 units Ketorolac Tromethamine (Toradol) 30 mg IVP Q6 PRN PRN Reason: Pain, moderate (4-7) Metformin HCl (Glucophage) 500 mg PO DAILY [facility] Last Admin: 01/05/18 10:13 Dose: 500 mg Metoprolol Tartrate (Lopressor) 50 mg PO BID [facility] Last Admin: 01/05/18 10:13 Dose: 50 mg Ondansetron HCl (Zofran Inj) 4 mg IVP Q6 PRN PRN Reason: Nausea/Vomiting Last Admin: 01/03/18 18:54 Dose: 4 mg Tamsulosin HCl (Flomax) 0.4 mg PO DAILY [facility] Last Admin: 01/05/18 10:13 Dose: 0.4 mg - Labs Labs: PT 11.6 SECONDS (9.4-12.5) 01/02/18 18:00 INR 1.02 (0.93-1.08) 01/02/18 18:00 APTT 33.6 Seconds (25.1-36.5) 01/02/18 18:00 - Constitutional Appears: No Acute Distress - Head Exam Head Exam: ATRAUMATIC, NORMAL INSPECTION, NORMOCEPHALIC - Eye Exam Eye Exam: EOMI, Normal appearance, PERRL Pupil Exam: NORMAL ACCOMODATION, PERRL - ENT Exam ENT Exam: Mucous Membranes Moist, Normal Exam - Neck Exam Neck Exam: Full ROM, Normal Inspection. absent: Lymphadenopathy - Respiratory Exam Respiratory Exam: Clear to Ausculation Bilateral, NORMAL BREATHING PATTERN - Cardiovascular Exam Cardiovascular Exam: REGULAR RHYTHM, +S1, +S2. absent: Murmur - GI/Abdominal Exam GI & Abdominal Exam: Soft, Normal Bowel Sounds. absent: Tenderness - Rectal Exam Rectal Exam: absent: Black Stool, Bloody Stool, Hemorrhoids, Fecal Impaction, NORMAL INSPECTION Additional comments: wound closed. No drainage. - Exam Exam: NORMAL INSPECTION - Extremities Exam Extremities Exam: Full ROM, Normal Capillary Refill, Normal Inspection. absent : Joint Swelling, Pedal Edema - Back Exam Back Exam: NORMAL INSPECTION - Neurological Exam Neurological Exam: Alert, Awake, CN II-XII Intact, Normal Gait, Oriented x3 - Psychiatric Exam Psychiatric exam: Normal Affect, Normal Mood - Skin Skin Exam: Dry, Intact, Normal Color, Warm. absent: Erythema Assessment and Plan - Assessment and Plan (Free Text) Assessment: s/p I&D of perianal abscess -ABX per ID DW Dr. Nesbitt
--- NOTE | 2018-01-05 17:53 | PN ---
DATE: SUBJECTIVE: The patient has no complaints of any chest pain, shortness of breath, or headaches. He states he is able to sit and is more comfortable. PHYSICAL EXAMINATION: VITAL SIGNS: Temperature is 97.9, pulse is 70, blood pressure 136/93, and respirations 18. GENERAL: The patient is lying in bed, flat, comfortable. HEENT: No oral lesion. Anicteric sclerae. Moist mucosa. NECK: No JVD, adenopathy, or thyromegaly. CARDIOVASCULAR: S1 and S2, regular. No murmurs, rubs, or gallops. LUNGS: Clear to auscultation bilaterally. No wheeze, rales, or rhonchi. ABDOMEN: Bowel sounds are positive, soft, nontender, and nondistended. EXTREMITIES: No cyanosis, clubbing, or edema. In the cultures, there is E. coli and yeast. LABORATORY DATA: His white count is 8.3, hemoglobin is 13.6. Creatinine 0.8. ASSESSMENT: 1. Perirectal abscess, status post incision and drainage. 2. Thrombosed hemorrhoids. 3. Diabetes type 2. 4. Hypertension. 5. Benign prostatic hypertrophy. PLAN: The patient is currently comfortable. He appreciates the input from Infectious Disease. The patient is receiving Amaryl for diabetes and Colace for constipation. Patient is also on Flagyl. Patient is on metformin for his diabetes and he is on insulin sliding scale. Patient is on hydrochlorothiazide for hypertension. He is on Lovenox for DVT prophylaxis. The patient has been started on micafungin for the yeast that was found in the cultures. He states he is clinically feeling better. He is on a heart healthy diet. He is able to ambulate. Yuri Albrecht MD
[2018-01-06] MEDS: metroNIDAZOLE IV 500 mg/100 ml 500 MG/100 ML BAG IVPB SCH ×3 (06:02→21:07)
--- NOTE | 2018-01-06 07:29 | CP.PCM.PN ---
Subjective - Date & Time of Evaluation Date of Evaluation: 01/06/18 Time of Evaluation: 07:26 - Subjective Subjective: Surgery Pt seen and examined. No acute events. Denies fevers, nausea, diarrhea. No drainage. Tolerating diet. Objective - Vital Signs/Intake and Output Vital Signs (last 24 hours): Temp Pulse Resp BP Pulse Ox 97 F L 64 18 130/87 98 01/05/18 22:00 01/05/18 22:00 01/05/18 22:00 01/05/18 22:00 01/05/18 22:00 Intake and Output: 01/06/18 01/06/18 06:59 18:59 Intake Total 660 Balance 660 - Medications Medications: Current Medications Acetaminophen (Tylenol 325mg Tab) 650 mg PO Q6 PRN PRN Reason: Pain, Mild (1-3) Docusate Sodium (Colace) 100 mg PO BID [facility] Last Admin: 01/05/18 18:17 Dose: 100 mg Enoxaparin Sodium (Lovenox) 40 mg SC DAILY [facility] PRN Reason: Protocol Last Admin: 01/05/18 10:12 Dose: 40 mg Glimepiride (Amaryl) 4 mg PO DAILY [facility] Last Admin: 01/05/18 10:13 Dose: 4 mg Hydrochlorothiazide (Hydrodiuril) 25 mg PO DAILY [facility] Last Admin: 01/05/18 10:14 Dose: 25 mg Metronidazole (Flagyl) 500 mg in 100 mls @ 100 mls/hr IVPB Q8 [facility] PRN Reason: Protocol Last Admin: 01/06/18 06:02 Dose: 100 mls/hr Ceftriaxone Sodium (Rocephin 1 Gram Ivpb) 1 gm in 100 mls @ 100 mls/hr IVPB DAILY [facility] PRN Reason: Protocol Last Admin: 01/05/18 10:11 Dose: 100 mls/hr Micafungin Sodium 100 mg/ (Sodium Chloride) 100 mls @ 100 mls/hr IV DAILY [facility] PRN Reason: Protocol Stop: 01/11/18 10:01 Last Admin: 01/05/18 11:36 Dose: 100 mls/hr Insulin Human Regular (Humulin R Low) 0 units SC ACHS [facility] PRN Reason: Protocol Last Admin: 01/05/18 22:01 Dose: Not Given Ketorolac Tromethamine (Toradol) 30 mg IVP Q6 PRN PRN Reason: Pain, moderate (4-7) Metformin HCl (Glucophage) 500 mg PO DAILY [facility] Last Admin: 01/05/18 10:13 Dose: 500 mg Metoprolol Tartrate (Lopressor) 50 mg PO BID [facility] Last Admin: 01/05/18 18:17 Dose: 50 mg Ondansetron HCl (Zofran Inj) 4 mg IVP Q6 PRN PRN Reason: Nausea/Vomiting Last Admin: 01/03/18 18:54 Dose: 4 mg Tamsulosin HCl (Flomax) 0.4 mg PO DAILY [facility] Last Admin: 01/05/18 10:13 Dose: 0.4 mg - Labs Labs: PT 11.6 SECONDS (9.4-12.5) 01/02/18 18:00 INR 1.02 (0.93-1.08) 01/02/18 18:00 APTT 33.6 Seconds (25.1-36.5) 01/02/18 18:00 - Constitutional Appears: No Acute Distress - Head Exam Head Exam: ATRAUMATIC, NORMAL INSPECTION, NORMOCEPHALIC - Eye Exam Eye Exam: EOMI, Normal appearance, PERRL Pupil Exam: NORMAL ACCOMODATION, PERRL - ENT Exam ENT Exam: Mucous Membranes Moist, Normal Exam - Neck Exam Neck Exam: Full ROM, Normal Inspection. absent: Lymphadenopathy - Respiratory Exam Respiratory Exam: Clear to Ausculation Bilateral, NORMAL BREATHING PATTERN - Cardiovascular Exam Cardiovascular Exam: REGULAR RHYTHM, +S1, +S2. absent: Murmur - GI/Abdominal Exam GI & Abdominal Exam: Soft, Normal Bowel Sounds. absent: Tenderness - Rectal Exam Rectal Exam: absent: Black Stool, Bloody Stool, Hemorrhoids Additional comments: no drainage. MIld erythema - Exam Exam: NORMAL INSPECTION - Extremities Exam Extremities Exam: Full ROM, Normal Capillary Refill, Normal Inspection. absent : Joint Swelling, Pedal Edema - Back Exam Back Exam: NORMAL INSPECTION - Neurological Exam Neurological Exam: Alert, Awake, CN II-XII Intact, Normal Gait, Oriented x3 - Psychiatric Exam Psychiatric exam: Normal Affect, Normal Mood - Skin Skin Exam: Dry, Erythema, Intact, Warm Assessment and Plan - Assessment and Plan (Free Text) Assessment: s/p I&D of perianal abscess Blood cx grew yeast -f/u repeat blood cx -ABX and Micafungin per ID will DW Dr. Nesbitt
[2018-01-06] MEDS: Insulin Reg-LOW-Coverage SC SCH ×4 (08:30→21:16)
--- NOTE | 2018-01-06 09:45 | PN ---
DATE: 01/06/2018 SUBJECTIVE: The patient has no complaints of any chest pain, no shortness of breath, no headaches or dizziness. PHYSICAL EXAMINATION VITAL SIGNS: Temperature is 97, pulse of 64, blood pressure is 130/87, respirations 18. GENERAL: The patient is lying in bed, flat, comfortable. HEENT: No oral lesion. Anicteric sclerae. Moist mucosa. NECK: No JVD, adenopathy, or thyromegaly. CARDIOVASCULAR: S1 and S2, regular. No murmurs, rubs, or gallops. LUNGS: Clear to auscultation bilaterally. No wheeze, rales, or rhonchi. ABDOMEN: Bowel sounds are positive, soft, nontender and nondistended. EXTREMITIES: No cyanosis, clubbing or edema. LABORATORY DATA: White count of 8.3, hemoglobin 13.6. Creatinine is 0.8. ASSESSMENT: 1. Perirectal abscess, status post incision and drainage. 2. Sepsis secondary to Escherichia coli and yeast. 3. Diabetes type 2. 4. Hypertension. 5. Benign prostatic hypertrophy. 6. Thrombosed external hemorrhoid. PLAN: The patient is feeling better. He says he is able to sit. He is on Amaryl for his diabetes. He is going to continue with Colace for constipation. He is on Flomax for his BPH. He is going to continue with Lovenox for DVT prophylaxis. He is on micafungin 100 mg daily for his yeast. The patient is on Toradol. I did review the notes from ID. He is currently ambulating. Yuri Albrecht MD
[2018-01-06] MEDS: Micafungin 100 MG in Sodium Chloride 0.9% 100 ML IV SCH (11:00)
[2018-01-06] MEDS: Enoxaparin 40 mg Syringe SC SCH ×2 (11:00)
--- NOTE | 2018-01-06 11:14 | CP.PCM.PN ---
Subjective - Date & Time of Evaluation Date of Evaluation: 01/06/18 Time of Evaluation: 09:40 - Subjective Subjective: Much improved rectal area pain, no fevers, no diarrhea, no abdominal pain. Objective - Vital Signs/Intake and Output Vital Signs (last 24 hours): Temp Pulse Resp BP Pulse Ox 97 F L 64 18 130/87 98 01/05/18 22:00 01/05/18 22:00 01/05/18 22:00 01/05/18 22:00 01/05/18 22:00 Intake and Output: 01/06/18 01/06/18 06:59 18:59 Intake Total 660 Balance 660 - Medications Medications: Current Medications Acetaminophen (Tylenol 325mg Tab) 650 mg PO Q6 PRN PRN Reason: Pain, Mild (1-3) Docusate Sodium (Colace) 100 mg PO BID [facility] Last Admin: 01/05/18 18:17 Dose: 100 mg Enoxaparin Sodium (Lovenox) 40 mg SC DAILY [facility] PRN Reason: Protocol Last Admin: 01/05/18 10:12 Dose: 40 mg Glimepiride (Amaryl) 4 mg PO DAILY [facility] Last Admin: 01/05/18 10:13 Dose: 4 mg Hydrochlorothiazide (Hydrodiuril) 25 mg PO DAILY [facility] Last Admin: 01/05/18 10:14 Dose: 25 mg Metronidazole (Flagyl) 500 mg in 100 mls @ 100 mls/hr IVPB Q8 [facility] PRN Reason: Protocol Last Admin: 01/06/18 06:02 Dose: 100 mls/hr Ceftriaxone Sodium (Rocephin 1 Gram Ivpb) 1 gm in 100 mls @ 100 mls/hr IVPB DAILY [facility] PRN Reason: Protocol Last Admin: 01/05/18 10:11 Dose: 100 mls/hr Micafungin Sodium 100 mg/ (Sodium Chloride) 100 mls @ 100 mls/hr IV DAILY [facility] PRN Reason: Protocol Stop: 01/11/18 10:01 Last Admin: 01/05/18 11:36 Dose: 100 mls/hr Insulin Human Regular (Humulin R Low) 0 units SC ACHS [facility] PRN Reason: Protocol Last Admin: 01/05/18 22:01 Dose: Not Given Ketorolac Tromethamine (Toradol) 30 mg IVP Q6 PRN PRN Reason: Pain, moderate (4-7) Metformin HCl (Glucophage) 500 mg PO DAILY [facility] Last Admin: 01/05/18 10:13 Dose: 500 mg Metoprolol Tartrate (Lopressor) 50 mg PO BID [facility] Last Admin: 01/05/18 18:17 Dose: 50 mg Ondansetron HCl (Zofran Inj) 4 mg IVP Q6 PRN PRN Reason: Nausea/Vomiting Last Admin: 01/03/18 18:54 Dose: 4 mg Tamsulosin HCl (Flomax) 0.4 mg PO DAILY [facility] Last Admin: 01/05/18 10:13 Dose: 0.4 mg - Labs Labs: PT 11.6 SECONDS (9.4-12.5) 01/02/18 18:00 INR 1.02 (0.93-1.08) 01/02/18 18:00 APTT 33.6 Seconds (25.1-36.5) 01/02/18 18:00 - Constitutional Appears: Non-toxic - Head Exam Head Exam: NORMAL INSPECTION - ENT Exam ENT Exam: Mucous Membranes Moist - Neck Exam Neck Exam: absent: Meningismus - Respiratory Exam Respiratory Exam: Decreased Breath Sounds - Cardiovascular Exam Cardiovascular Exam: +S1, +S2 - GI/Abdominal Exam GI & Abdominal Exam: Soft. absent: Tenderness Assessment and Plan - Assessment and Plan (Free Text) Plan: Assessment Fungemia, source unclear perirectal abscess with associated thrombosed hemorrhoids with E. coli and Group B Strep DM HTN CAD hemorrhoids Plan Continue Rocephin, Flagyl and Mycamine pending identification of the yeast in the blood - repeat blood cx are negative - will probably need 4 weeks of antifungals - follow up 2D echo as well will continue to monitor clinically
[2018-01-06] MEDS: cefTRIAXone 1 gm 1 GM/100 ML BAG IVPB SCH (12:24)
--- NOTE | 2018-01-06 17:07 | CARD ---
APPROVED REPORT EXAM: Two-dimensional and M-mode echocardiogram with Doppler and color Doppler. INDICATION Infection:Rule out subacute bacterial endocarditis 2D DIMENSIONS Left Atrium (2D)5.9 (1.6-4.0cm)IVSd1.1 (0.7-1.1cm) LVDd5.8 (3.9-5.9cm)PWd1.2 (0.7-1.1cm) LVDs4.7 (2.5-4.0cm)FS (%) 19.4 % LVEF (%)39.3 (>50%) M-Mode DIMENSIONS Aortic Root3.70 (2.2-3.7cm)Aortic Cusp Exc.2.10 (1.5-2.0cm) Aortic Valve AoV Peak Nrevpkyt743.0cm/Daja Peak GR.6mmHgAI P 1/2 [id number] Mitral Valve MV E Uqppehoq19.2cm/sMV A Otgqqwsu22.4cm/sE/A ratio2.1 TDI Lateral E' Peak V7.21cm/sMedial E' Peak V4.48cm/sE/Lateral E'13.8 E/Medial E'22.1 Pulmonary Valve PV Peak Znohxzlw15.6cm/sPV Peak Grad.2mmHg Tricuspid Valve TR Peak Ndtqojra324jv/sRAP [id number] Peak Gr.118mmHg [id number] LEFT VENTRICLE The Left Ventricle is mildly dilated. There is normal left ventricular wall thickness. The systolic function is severely impaired. Sever Septal and Apical hypokinesis Transmitral Doppler flow pattern is Grade I-abnormal relaxation pattern. The left ventricular apex is not well visualized. RIGHT VENTRICLE The right ventricle is normal size. There is normal right ventricular wall thickness. The right ventricular systolic function is normal. ATRIA The left atrium is severely dilated. The right atrium is moderately dilated. AORTIC VALVE The aortic valve is moderately thickened. There is mild aortic regurgitation. MITRAL VALVE The mitral valve is mildly thickened. Mitral regurgitation is mild to moderate. TRICUSPID VALVE There is severe tricuspid regurgitation. There is severe pulmonary hypertension. GREAT VESSELS The aortic root is mildly enlarged. PERICARDIAL EFFUSION There is a trace loculated anterior pericardial effusion. <Conclusion> The Left Ventricle is mildly dilated. There is normal left ventricular wall thickness. The systolic function is severely impaired. Sever Septal and Apical hypokinesis Transmitral Doppler flow pattern is Grade I-abnormal relaxation pattern. There is mild aortic regurgitation. Mitral regurgitation is mild to moderate. There is severe pulmonary hypertension. No vegitation seen
[2018-01-07] MEDS: metroNIDAZOLE IV 500 mg/100 ml 500 MG/100 ML BAG IVPB SCH ×2 (06:13→13:39)
[2018-01-07 08:20] VITALS: RESP 20; TEMP 98; O2SAT 97
[2018-01-07] MEDS: Insulin Reg-LOW-Coverage SC SCH ×2 (08:38→12:28)
[2018-01-07] MEDS: cefTRIAXone 1 gm 1 GM/100 ML BAG IVPB SCH (09:57)
[2018-01-07] MEDS: Enoxaparin 40 mg Syringe SC SCH ×2 (09:57→10:59)
[2018-01-07 10:05] VITALS: BP 149/94; PULSE 76
[2018-01-07] MEDS: Micafungin 100 MG in Sodium Chloride 0.9% 100 ML IV SCH (11:51)
--- NOTE | 2018-01-07 12:11 | CP.PCM.DIS ---
Provider - Provider Date of Admission: 01/03/18 12:10 Attending physician: Kleber Nesbitt MD Primary care physician: Yuri Albrecht MD Consults: ID: Dr. [email or web address] Time Spent in preparation of Discharge (in minutes): 25 Diagnosis - Discharge Diagnosis (1) Perirectal abscess Status: Acute Priority: High Hospital Course - Lab Results Lab Results: Micro Results 01/04/18 09:15 Blood-Venous Blood Culture - Preliminary NO GROWTH AFTER 3 DAYS 01/04/18 09:15 Blood-Venous Blood Culture - Preliminary NO GROWTH AFTER 3 DAYS Most Recent Lab Values WBC 8.3 10^3/ul (4.5-11.0) 01/03/18 07:01 RBC 4.59 10^6/uL (3.5-6.1) 01/03/18 07:01 Hgb 13.6 g/dL (14.0-18.0) L 01/03/18 07:01 Hct 40.1 % (42.0-52.0) L 01/03/18 07:01 MCV 87.4 fl (80.0-105.0) 01/03/18 07:01 MCH 29.6 pg (25.0-35.0) 01/03/18 07:01 MCHC 33.9 g/dl (31.0-37.0) 01/03/18 07:01 RDW 13.8 % (11.5-14.5) 01/03/18 07:01 Plt Count 293 10^3/uL (120.0-450.0) 01/03/18 07:01 MPV 9.5 fl (7.0-11.0) 01/03/18 07:01 Gran % 68.2 % (50.0-68.0) H 01/03/18 07:01 Lymph % (Auto) 19.7 % (22.0-35.0) L 01/03/18 07:01 Baxter % (Auto) 11.0 % (1.0-6.0) H 01/03/18 07:01 Eos % (Auto) 0.6 % (1.5-5.0) L 01/03/18 07:01 Baso % (Auto) 0.5 % (0.0-3.0) 01/03/18 07:01 Gran # 5.66 (1.4-6.5) 01/03/18 07:01 Lymph # (Auto) 1.6 (1.2-3.4) 01/03/18 07:01 Baxter # (Auto) 0.9 (0.1-0.6) H 01/03/18 07:01 Eos # (Auto) 0.1 (0.0-0.7) 01/03/18 07:01 Baso # (Auto) 0.04 K/mm3 (0.0-2.0) 01/03/18 07:01 PT 11.6 SECONDS (9.4-12.5) 01/02/18 18:00 INR 1.02 (0.93-1.08) 01/02/18 18:00 APTT 33.6 Seconds (25.1-36.5) 01/02/18 18:00 pO2 52 mm/Hg (30-55) 01/02/18 18:36 VBG pH 7.48 (7.32-7.43) H 01/02/18 18:36 VBG pCO2 37.0 (40-60) L 01/02/18 18:36 VBG HCO3 27.6 mmol/l (21-28) 01/02/18 18:36 VBG Total CO2 28.7 mmol.L (22-28) H 01/02/18 18:36 VBG O2 Sat (Calc) 92.7 % (40-65) H 01/02/18 18:36 VBG Base Excess 4.0 mmol/L (0.0-2.0) H 01/02/18 18:36 VBG Potassium 3.5 mmol/L (3.6-5.2) L 01/02/18 18:36 Sodium 136.0 mmol/L (132-148) 01/02/18 18:36 Chloride 101.0 mmol/L (98-107) 01/02/18 18:36 Glucose 126 mg/dl (75-110) H 01/02/18 18:36 Lactate 1.4 mmol/L (0.7-2.1) 01/02/18 18:36 FiO2 21.0 % 01/02/18 18:36 Sodium 137 mmol/L (132-148) 01/03/18 07:01 Potassium 4.2 mmol/L (3.6-5.0) 01/03/18 07:01 Chloride 103 mmol/L (98-107) 01/03/18 07:01 Carbon Dioxide 27 mmol/L (21-33) 01/03/18 07:01 Anion Gap 12 (10-20) 01/03/18 07:01 BUN 11 mg/dL (7-21) 01/03/18 07:01 Creatinine 0.8 mg/dl (0.8-1.5) 01/03/18 07:01 Est GFR ( Amer) > 60 01/03/18 07:01 Est GFR (Non-Af Amer) > 60 01/03/18 07:01 POC Glucose (mg/dL) 190 mg/dL (65-110) H 01/07/18 11:21 Random Glucose 115 mg/dL (70-110) H 01/03/18 07:01 Calcium 9.1 mg/dL (8.4-10.5) 01/03/18 07:01 Magnesium 1.8 mg/dL (1.7-2.2) 01/02/18 18:00 Total Bilirubin 0.6 mg/dL (0.2-1.3) 01/02/18 18:00 AST 72 U/L (17-59) H 01/02/18 18:00 ALT 81 U/L (7-56) H 01/02/18 18:00 Alkaline Phosphatase 82 U/L (38-126) 01/02/18 18:00 Total Protein 6.8 g/dL (5.8-8.3) 01/02/18 18:00 Albumin 3.8 g/dL (3.0-4.8) 01/02/18 18:00 Globulin 3.0 gm/dL 01/02/18 18:00 Albumin/Globulin Ratio 1.2 (1.1-1.8) 01/02/18 18:00 Venous Blood Potassium 3.5 mmol/L (3.6-5.2) L 01/02/18 18:36 Urine Color Straw (YELLOW) 01/02/18 19:25 Urine Appearance Clear (CLEAR) 01/02/18 19:25 Urine pH 7.0 (4.7-8.0) 01/02/18 19:25 Ur Specific [place] <= 1.005 (1.005-1.035) 01/02/18 19:25 Urine Protein Negative mg/dL (<30 mg/dL) 01/02/18 19:25 Urine Glucose (UA) Negative mg/dL (NEGATIVE) 01/02/18 19:25 Urine Ketones Negative mg/dL (NEGATIVE) 01/02/18 19:25 Urine Blood Negative (NEGATIVE) 01/02/18 19:25 Urine Nitrate Negative (NEGATIVE) 01/02/18 19:25 Urine Bilirubin Negative (NEGATIVE) 01/02/18 19:25 Urine Urobilinogen 0.2 E.U./dL (<1 E.U./dL) 01/02/18 19:25 Ur Leukocyte Esterase Negative Anival/uL (NEGATIVE) 01/02/18 19:25 - Hospital Course Hospital Course: Patient was admitted s/p eloisa of external hemorrhoid. Found to have dontae- rectal cellulitis. Patient was also found to have Yeast species + blood culture. ID consulted and patient was treated with course of mycofungin and IV abx. Repeat blood culture were found negative at 72 hours and patient cleared for d/c with 30 days of fluconazole and 1 week augmentin. - Date & Time of H&P Date of H&P: 01/02/18 Discharge Exam - Head Exam Head Exam: NORMAL INSPECTION - Eye Exam Eye Exam: EOMI, Normal appearance - ENT Exam ENT Exam: Mucous Membranes Moist - Respiratory Exam Respiratory Exam: NORMAL BREATHING PATTERN, UNREMARKABLE. absent: Respiratory Distress - Cardiovascular Exam Cardiovascular Exam: REGULAR RHYTHM. absent: Tachycardia - GI/Abdominal Exam GI & Abdominal Exam: Soft. absent: Distended, Tenderness - Rectal Exam Additional comments: significant improvement of cellulitis, no drainage - Neurological Exam Neurological exam: Alert, Oriented x3 - Psychiatric Exam Psychiatric exam: Normal Affect, Normal Mood - Skin Skin Exam: Dry, Normal Color, Warm Discharge Plan - Discharge Medications Prescriptions: Amoxicillin/Clavulanate [Augmentin 875 MG-125 MG] 1 tab PO BID #14 tab Fluconazole [Diflucan] 100 mg PO DAILY #14 tab - Follow Up Plan Condition: GOOD Disposition: HOME/ ROUTINE Patient education suggested?: Yes Instructions: Fluconazole, Amoxicillin and Clavulanate, Hemorrhoids (DC), How to Do a Sitz Bath Additional Instructions: F/U with Dr. Nesbitt in 1-2 weeks. Call office for appointment. Take all medications as prescribed. Cont. sitz baths at home until healed. Referrals: Yuri Albrecht MD [Primary Care Provider] - Kleber Nesbitt MD [Staff Provider] - Clinical Quality Measures - Date & Time of Discharge Summary Date of Discharge Summary: 01/07/18 Time of Discharge Summary: 12:11
--- NOTE | 2018-01-07 12:36 | CP.PCM.PN ---
Subjective - Date & Time of Evaluation Date of Evaluation: 01/07/18 Time of Evaluation: 11:40 - Subjective Subjective: Comfortable, much improved perirectal pain, no fevers, no abdominal pain, no nausea, no diarrhea. Objective - Vital Signs/Intake and Output Vital Signs (last 24 hours): Temp Pulse Resp BP Pulse Ox 98 F 76 20 149/94 H 97 01/07/18 08:19 01/07/18 09:58 01/07/18 08:19 01/07/18 09:58 01/07/18 08:19 Intake and Output: 01/07/18 01/07/18 06:59 18:59 Intake Total 120 Balance 120 - Medications Medications: Current Medications Acetaminophen (Tylenol 325mg Tab) 650 mg PO Q6 PRN PRN Reason: Pain, Mild (1-3) Docusate Sodium (Colace) 100 mg PO BID [facility] Last Admin: 01/07/18 09:57 Dose: 100 mg Enoxaparin Sodium (Lovenox) 40 mg SC DAILY [facility] PRN Reason: Protocol Last Admin: 01/06/18 11:00 Dose: Not Given Glimepiride (Amaryl) 4 mg PO DAILY [facility] Last Admin: 01/07/18 09:57 Dose: 4 mg Hydrochlorothiazide (Hydrodiuril) 25 mg PO DAILY [facility] Last Admin: 01/07/18 09:57 Dose: 25 mg Metronidazole (Flagyl) 500 mg in 100 mls @ 100 mls/hr IVPB Q8 [facility] PRN Reason: Protocol Last Admin: 01/07/18 06:13 Dose: 100 mls/hr Ceftriaxone Sodium (Rocephin 1 Gram Ivpb) 1 gm in 100 mls @ 100 mls/hr IVPB DAILY [facility] PRN Reason: Protocol Last Admin: 01/07/18 09:57 Dose: 100 mls/hr Insulin Human Regular (Humulin R Low) 0 units SC ACHS [facility] PRN Reason: Protocol Last Admin: 01/07/18 08:38 Dose: Not Given Ketorolac Tromethamine (Toradol) 30 mg IVP Q6 PRN PRN Reason: Pain, moderate (4-7) Metformin HCl (Glucophage) 500 mg PO DAILY [facility] Last Admin: 01/07/18 09:57 Dose: 500 mg Metoprolol Tartrate (Lopressor) 50 mg PO BID [facility] Last Admin: 01/07/18 09:58 Dose: 50 mg Ondansetron HCl (Zofran Inj) 4 mg IVP Q6 PRN PRN Reason: Nausea/Vomiting Last Admin: 01/03/18 18:54 Dose: 4 mg Tamsulosin HCl (Flomax) 0.4 mg PO DAILY [facility] Last Admin: 01/07/18 09:57 Dose: 0.4 mg - Labs Labs: PT 11.6 SECONDS (9.4-12.5) 01/02/18 18:00 INR 1.02 (0.93-1.08) 01/02/18 18:00 APTT 33.6 Seconds (25.1-36.5) 01/02/18 18:00 - Constitutional Appears: Non-toxic - Head Exam Head Exam: NORMAL INSPECTION - ENT Exam ENT Exam: Mucous Membranes Moist - Neck Exam Neck Exam: absent: Meningismus - Respiratory Exam Respiratory Exam: Decreased Breath Sounds. absent: Rales - Cardiovascular Exam Cardiovascular Exam: +S1, +S2 - GI/Abdominal Exam GI & Abdominal Exam: Soft. absent: Tenderness Assessment and Plan - Assessment and Plan (Free Text) Plan: Assessment Fungemia, source unclear - called microlab, yeast in not growing perirectal abscess with associated thrombosed hemorrhoids with E. coli and Group B Strep DM HTN CAD hemorrhoids Plan can switch Rocephin, Flagyl to Augmentin for another 7 days - will switch Mycamine to Diflucan for another 2 weeks and advised patient to follow up with PMD to get repeat blood cx after the 2 weeks of antifungals - 2D echo is negative and repeat blood cx currently are negative
--- NOTE | 2018-01-10 06:48 | PN ---
DATE: 01/07/2018 SUBJECTIVE: He is comfortable in bed, in no acute distress. No chest pain. No shortness of breath. No diarrhea, no nausea, no vomiting. REVIEW OF SYSTEMS: As per HPI. Rest of the 12-point review of systems reviewed, negative. PHYSICAL EXAMINATION: GENERAL: Comfortable in bed, in no acute distress. VITAL SIGNS: Temperature 97.8, heart rate 80 per minute, blood pressure 130/87, respiratory rate 18 per minute, oxygen saturation 98% on room air. HEENT: Normal. No lymphadenopathy. CHEST: Air entry present and equal bilaterally. No added sounds. CARDIOVASCULAR: S1, S2 normal. No murmur. No gallop. ABDOMEN: Soft, nontender. No hepatosplenomegaly. EXTREMITIES: No edema. SPINE: Nontender. LABORATORY DATA: White count 8.3, hemoglobin 13.6. Creatinine 0.8. ASSESSMENT: 1. Perirectal abscess, status post incision and drainage. 2. Sepsis. 3. Diabetes mellitus type 2. 4. Hypertension. 5. Benign prostatic hypertrophy. 6. Hemorrhoid, thrombosed, external. PLAN: He is currently comfortable. Surgery is following. Currently on IV antibiotics as per ID. He is being currently discharged home. Follow up with Dr. Nesbitt in 1 week. Ely Harrison MD
== END 2018-01-07 14:23 | disposition home or self-care (01) | DRG 872 ==
LOC: ED 17:10 → ERH 20:41 → 5RNO 22:05 → OBSVTOIN 01-03 12:10
PROVIDERS: ADMIT Surgery; ATTEND Surgery
DX: A41.51 Sepsis due to Escherichia coli [E. coli] (principal); K61.1 Rectal abscess; B49 Unspecified mycosis; E11.9 Type 2 diabetes mellitus without complications; F17.210 Nicotine dependence, cigarettes, uncomplicated; I10 Essential (primary) hypertension; I25.10 Atherosclerotic heart disease of native coronary artery without angina pectoris; K21.9 Gastro-esophageal reflux disease without esophagitis; K64.4 Residual hemorrhoidal skin tags; N40.0 Benign prostatic hyperplasia without lower urinary tract symptoms; Z87.01 Personal history of pneumonia (recurrent); Z95.5 Presence of coronary angioplasty implant and graft; K64.5 Perianal venous thrombosis; B95.1 Streptococcus, group B, as the cause of diseases classified elsewhere

== ENCOUNTER 2018-02-11 21:24 | Inpatient (IN) | payer MEDICARE, OTHER ==
[2018-02-11 21:24] VITALS: BMI 27.8
[2018-02-11] MEDS ORDERED: Sodium Chloride 0.9% 1,000 ML IV STA ×2 (21:48→23:57)
--- NOTE | 2018-02-11 21:48 | ED PDOC ---
Arrival/HPI - General Chief Complaint: Abdominal Pain Time Seen by Provider: 02/11/18 21:45 Historian: Patient - History of Present Illness Narrative History of Present Illness (Text): 02/11/18 21:47 Patient is a 67 year old male whose past medical history includes hypertension, diabetes type 2, and coronary stent placement, who presents to the Emergency department complaining of nausea, diarrhea, and intermittent abdominal pain, which started yesterday. Patient reports that today he has had 4-5 episodes of diarrhea. He mentions that along with his abdominal pain he is experiencing a bloating sensation. Patient mentions that he currently feels anxious from his symptoms. Patient denies any recent travels, eating anything unusual, or contact with any sick people at home. He admits to experiencing chills, but denies fevers, chest pain, shortness of breath, dyspnea on exertion, cough, vomiting, back pain, neck pain, headache, dizziness, or any other complaint. Of note patient states that he took his diabetes medication this morning. Time/Duration: > week (Since yesterday) Symptom Course: Intermittent Quality: Other ("Bloating" sensation) Context: Home Past Medical History - Provider Review Nursing Documentation Reviewed: Yes - Infectious Disease Hx of Infectious Diseases: None - Tetanus Immunization Tetanus Immunization: Unknown - Cardiac Hx Cardiac Arrhythmia: Yes Hx Hypertension: Yes - Pulmonary Hx Pneumonia: Yes - Neurological Hx Neurological Disorder: No - HEENT Hx HEENT Disorder: No - Renal Hx Renal Disorder: No - Endocrine/Metabolic Hx Diabetes Mellitus Type 2: Yes - Hematological/Oncological Hx Blood Disorders: No - Integumentary Hx Dermatological Disorder: No - Musculoskeletal/Rheumatological Hx Falls: Yes - Gastrointestinal Hx Gastroesophageal Reflux: Yes - Genitourinary/Gynecological Hx Genitourinary Disorders: No - Psychiatric Hx Psychophysiologic Disorder: No Hx Substance Use: No - Past Surgical History Past Surgical History: Unable to Obtain - Surgical History Hx Cardiac Catheterization: Yes Hx Coronary Stent: Yes - Anesthesia Hx Anesthesia Reactions: No - Suicidal Assessment Feels Threatened In Home Enviroment: No Family/Social History - Physician Review Nursing Documentation Reviewed: Yes Family/Social History: No Known Family HX Smoking Status: Current Some Days Smoker Hx Alcohol Use: No Hx Substance Use: No Allergies/Home Meds Allergies/Adverse Reactions: Allergies No Known Allergies Allergy (Verified 01/02/18 17:43) Home Medications: Home Meds Medication Instructions Recorded Confirmed Glimepiride [amaRYL] 4 mg PO DAILY 01/02/18 02/11/18 Metoprolol Tartrate [Lopressor] 50 mg PO BID 01/02/18 02/11/18 hydroCHLOROthiazide [Hydrodiuril] 25 mg PO DAILY 01/02/18 02/11/18 Review of Systems - Physician Review All systems were reviewed & negative as marked: Yes - Review of Systems Constitutional: Other (chills). absent: Fevers Respiratory: absent: SOB, Cough Cardiovascular: absent: Chest Pain Gastrointestinal: Abdominal Pain, Diarrhea, Nausea. absent: Vomiting Musculoskeletal: absent: Back Pain, Neck Pain Neurological: absent: Headache, Dizziness Physical Exam Vital Signs Reviewed: Yes Vital Signs Temp Pulse Resp BP Pulse Ox 02/11/18 21:28 98.2 F 106 H 15 152/88 H 99 Temperature: Afebrile Blood Pressure: Hypertensive Pulse: Tachycardic Respiratory Rate: Normal Appearance: Positive for: Well-Appearing Mental Status: Positive for: Alert and Oriented X 3 - Systems Exam Head: Present: Atraumatic, Normocephalic Pupils: Present: PERRL Extroacular Muscles: Present: EOMI Conjunctiva: Present: Normal Mouth: Present: Moist Mucous Membranes Neck: Present: Normal Range of Motion Respiratory/Chest: Present: Clear to Auscultation, Good Air Exchange. No: Respiratory Distress, Accessory Muscle Use Cardiovascular: Present: Regular Rate and Rhythm, Normal S1, S2. No: Murmurs Abdomen: Present: Tenderness (Epigastric tenderness). No: Distention, Peritoneal Signs Back: Present: Normal Inspection Upper Extremity: Present: Normal Inspection. No: Cyanosis, Edema Lower Extremity: Present: Normal Inspection. No: Edema (No pitting edema) Neurological: Present: GCS=15, CN II-XII Intact, Speech Normal Skin: Present: Warm, Dry, Normal Color, Other (chronic abrasion/redness on upper extremities). No: Rashes Psychiatric: Present: Alert, Oriented x 3, Normal Insight, Normal Concentration Medical Decision Making ED Course and Treatment: 02/11/18 21:48 Impression: Patient is a 67 year old male who is experiencing intermittent abdominal pain, nausea, and diarrhea. Differential Diagnosis included but are not limited to: Enteritis Plan: --Cardiac enzyme --lab work --Chest X-ray --Ativan --Zofran --Pepcid --IV fluids -- Reassess and disposition Prior Visits: Notes and results from previous visits were reviewed. Patient was last seen in the emergency department on 01/03/18 for perirectal abscess and was hospitalized. Progress Notes: 02/11/18 21:48 EKG shows NSR at 92bpm with LAD and LVH. Interpreted by me. - RAD Interpretation Radiology Orders: 02/11/18 21:46 CHEST PORTABLE [RAD] Stat - EKG Interpretation Interpreted by ED Physician: Yes Type: 12 lead EKG - Medication Orders Current Medication Orders: Sodium Chloride (Sodium Chloride 0.9%) 1,000 mls @ 999 mls/hr IV .Q1H1M STA Stop: 02/11/18 22:48 Last Admin: 02/11/18 22:18 Dose: 999 mls/hr eMAR Start Stop Document 02/11/18 22:18 CHRIS (Rec: 02/11/18 22:18 CHRIS [id number]) Intravenous Solution Start Date 02/11/18 Start Time 22:18 End Date 02/11/18 End time 23:18 Total Infusion Time 60 Discontinued Medications Famotidine (Pepcid 20mg/50ml Premix) 20 mg in 50 mls @ 100 mls/hr IVPB STAT STA Stop: 02/11/18 22:18 Last Admin: 02/11/18 22:17 Dose: 100 mls/hr eMAR Start Stop Document 02/11/18 22:17 CHRIS (Rec: 02/11/18 22:17 CHRIS [id number]) Intravenous Solution Start Date 02/11/18 Start Time 22:17 End Date 02/11/18 End time 22:47 Total Infusion Time 30 Lorazepam (Ativan) 1 mg PO ONCE ONE PRN Reason: Protocol Stop: 02/11/18 21:56 Last Admin: 02/11/18 22:17 Dose: 1 mg Ondansetron HCl (Zofran Inj) 4 mg IVP STAT STA Stop: 02/11/18 21:51 Last Admin: 02/11/18 22:17 Dose: 4 mg IVP Administration Document 02/11/18 22:17 CHRIS (Rec: 02/11/18 22:17 CHRIS [id number]) Charges for Administration # of IVP Administrations 1 - Scribe Statement The provider has reviewed the documentation as recorded by the Favianibleeanna Up Provider Scribe Attestation: All medical record entries made by the Scribe were at my direction and personally dictated by me. I have reviewed the chart and agree that the record accurately reflects my personal performance of the history, physical exam, medical decision making, and the department course for this patient. I have also personally directed, reviewed, and agree with the discharge instructions and disposition. Disposition/Present on Arrival - Present on Arrival Any Indicators Present on Arrival: Yes History of DVT/PE: No History of Uncontrolled Diabetes: Yes Urinary Catheter: No History of Decub. Ulcer: No History Surgical Site Infection Following: None - Disposition Have Diagnosis and Disposition been Completed?: No Diagnosis: Enteritis Disposition Time: 22:22 Condition: FAIR Referrals: Yuri Albrecht MD [Primary Care Provider] - Follow up with primary Forms: [employer] (Hungarian)
[2018-02-11] MEDS ORDERED: Famotidine 20mg/50ml 20 MG/50 ML BAG IVPB STA (21:49)
--- NOTE | 2018-02-11 22:24 | ED PDOC ---
Physical Exam Vital Signs Reviewed: Yes Vital Signs Temp Pulse Resp BP Pulse Ox 02/11/18 21:28 98.2 F 106 H 15 152/88 H 99 Temperature: Afebrile Blood Pressure: Hypertensive Pulse: Tachycardic Respiratory Rate: Normal Appearance: Positive for: Well-Appearing, Non-Toxic, Comfortable Pain Distress: None Mental Status: Positive for: Alert and Oriented X 3 - Systems Exam Head: Present: Atraumatic, Normocephalic Pupils: Present: PERRL Extroacular Muscles: Present: EOMI Conjunctiva: Present: Normal Mouth: Present: Moist Mucous Membranes Neck: Present: Normal Range of Motion Respiratory/Chest: Present: Clear to Auscultation, Good Air Exchange. No: Respiratory Distress, Accessory Muscle Use Cardiovascular: Present: Regular Rate and Rhythm, Normal S1, S2. No: Murmurs Abdomen: No: Tenderness, Distention, Peritoneal Signs Back: Present: Normal Inspection Upper Extremity: Present: Normal Inspection. No: Cyanosis, Edema Lower Extremity: Present: Normal Inspection. No: Edema Neurological: Present: GCS=15, CN II-XII Intact, Speech Normal Skin: Present: Warm, Dry, Normal Color. No: Rashes Psychiatric: Present: Alert, Oriented x 3, Normal Insight, Normal Concentration Medical Decision Making ED Course and Treatment: 02/11/18 22:23 Patient transferred to [place] by Dr. Andrew pending follow up labs and reevaluation. 02/12/18 00:25 On reevaluation, patient's abdomen is soft and not tender. He is coughing in the ED. He says he's been coughing for several days. No fever but does get sweats. His sugars have been running high. CXR shows RLL PNA. WBC 14. He will benefit from IV antibiotics considering his uncontrolled diabetes, elevated WBC. I discussed the case with Dr. Metzger who is covering for Dr. Albrecht who will accept the case. - Lab Interpretations Lab Results: 02/11/18 22:10 02/11/18 22:10 Lab Results 02/11/18 22:10: Sodium 142, Potassium 3.7, Chloride 104, Carbon Dioxide 22, Anion Gap 20, BUN 13, Creatinine 1.1, Est GFR ( Amer) > 60, Est GFR (Non- Af Amer) > 60, Random Glucose 346 H* D, Calcium 9.1, Total Bilirubin 1.0, AST 64 H, ALT 92 H, Alkaline Phosphatase 82, Troponin I 0.04, Total Protein 7.0, Albumin 4.4, Globulin 2.6, Albumin/Globulin Ratio 1.7, Lipase 71 02/11/18 22:10: WBC 14.1 H D, RBC 4.99, Hgb 15.2, Hct 44.4, MCV 89.0, MCH 30.5, MCHC 34.2, RDW 14.0, Plt Count 267, MPV 11.0, Gran % 87.9 H, Lymph % (Auto) 6.5 L, [place] % (Auto) 5.3, Eos % (Auto) 0.1 L, Baso % (Auto) 0.2, Gran # 12.35 H, Lymph # (Auto) 0.9 L, [place] # (Auto) 0.7 H, Eos # (Auto) 0.0, Baso # (Auto) 0.03 I have reviewed the lab results: Yes Interpretation: Abnormal lab values (elevated WBC) - RAD Interpretation Radiology Orders: 02/11/18 21:46 CHEST PORTABLE [RAD] Stat RLL PNA Art Sales Consultant: ED Physician - Medication Orders Current Medication Orders: Sodium Chloride (Sodium Chloride 0.9%) 1,000 mls @ 999 mls/hr IV .Q1H1M STA Stop: 02/12/18 00:57 Last Admin: 02/12/18 00:19 Dose: 999 mls/hr eMAR Start Stop Document 02/12/18 00:19 CHRIS (Rec: 02/12/18 00:20 CHRIS [id number]) Intravenous Solution Start Date 02/12/18 Start Time 00:20 End Date 02/12/18 End time 00:50 Total Infusion Time 30 Ceftriaxone Sodium (Rocephin 1 Gram Ivpb) 1 gm in 100 mls @ 200 mls/hr IVPB STAT STA PRN Reason: Protocol Stop: 02/12/18 00:31 Last Admin: 02/12/18 00:19 Dose: 200 mls/hr eMAR Start Stop Document 02/12/18 00:19 CHRIS (Rec: 02/12/18 00:19 CHRIS [id number]) Intravenous Solution Start Date 02/12/18 Start Time 00:19 End Date 02/12/18 End time 00:49 Total Infusion Time 30 Discontinued Medications Azithromycin (Zithromax) 500 mg PO STAT STA PRN Reason: Protocol Stop: 02/12/18 00:03 Last Admin: 02/12/18 00:19 Dose: 500 mg Famotidine (Pepcid 20mg/50ml Premix) 20 mg in 50 mls @ 100 mls/hr IVPB STAT STA Stop: 02/11/18 22:18 Last Admin: 02/11/18 22:17 Dose: 100 mls/hr eMAR Start Stop Document 02/11/18 22:17 CHRIS (Rec: 02/11/18 22:17 CHRIS [id number]) Intravenous Solution Start Date 02/11/18 Start Time 22:17 End Date 02/11/18 End time 22:47 Total Infusion Time 30 Sodium Chloride (Sodium Chloride 0.9%) 1,000 mls @ 999 mls/hr IV .Q1H1M STA Stop: 02/11/18 22:48 Last Admin: 02/11/18 22:18 Dose: 999 mls/hr eMAR Start Stop Document 02/11/18 22:18 CHRIS (Rec: 02/11/18 22:18 CHRIS [id number]) Intravenous Solution Start Date 02/11/18 Start Time 22:18 End Date 02/11/18 End time 23:18 Total Infusion Time 60 Lorazepam (Ativan) 1 mg PO ONCE ONE PRN Reason: Protocol Stop: 02/11/18 21:56 Last Admin: 02/11/18 22:17 Dose: 1 mg Ondansetron HCl (Zofran Inj) 4 mg IVP STAT STA Stop: 02/11/18 21:51 Last Admin: 02/11/18 22:17 Dose: 4 mg IVP Administration Document 02/11/18 22:17 CHRIS (Rec: 02/11/18 22:17 CHRIS [id number]) Charges for Administration # of IVP Administrations 1 - Scribe Statement The provider has reviewed the documentation as recorded by the Scribleeanna Ferrara All medical record entries made by the Scribe were at my direction and personally dictated by me. I have reviewed the chart and agree that the record accurately reflects my personal performance of the history, physical exam, medical decision making, and the department course for this patient. I have also personally directed, reviewed, and agree with the discharge instructions and disposition. Disposition/Present on Arrival - Present on Arrival Any Indicators Present on Arrival: Yes History of DVT/PE: No History of Uncontrolled Diabetes: Yes Urinary Catheter: No History of Decub. Ulcer: No History Surgical Site Infection Following: None - Disposition Have Diagnosis and Disposition been Completed?: Yes Diagnosis: Enteritis, Pneumonia, Uncontrolled diabetes mellitus Disposition: HOSPITALIZED Disposition Time: 00:27 Patient Plan: Admission Patient Problems: Current Active Problems Problem Status Onset Enteritis Acute Condition: FAIR Referrals: Yuri Albrecht MD [Primary Care Provider] - Follow up with primary Forms: [employer] (Hungarian)
[2018-02-11 22:44] LABS: ALB/GLOB RATIO 1.7 (1.1-1.8); ALBUMIN 4.4 g/dL (3.0-4.8); ALT/SGPT 92 U/L (7-56); AST/SGOT 64 U/L (17-59); BLOOD UREA NITROGEN 13 mg/dL (7-21); CALCIUM 9.1 mg/dL (8.4-10.5); GFR NON-AFRICAN AMERICAN > 60; LIPASE 71 U/L (23-300)
[2018-02-11 22:49] LABS: TROPONIN I 0.04 ng/mL
[2018-02-11 23:21] LABS: BASO # 0.03 K/mm3 (0.0-2.0); BASO % 0.2 % (0.0-3.0); EOS % 0.1 % (1.5-5.0); GRAN # 12.35 (1.4-6.5); GRAN % 87.9 % (50.0-68.0); HEMOGLOBIN 15.2 g/dL (14.0-18.0); LYMPH # 0.9 (1.2-3.4); LYMPH % 6.5 % (22.0-35.0); MEAN CORPUSCULAR HEMOGLOBIN 30.5 pg (25.0-35.0); MEAN CORPUSCULAR HGB CONC 34.2 g/dl (31.0-37.0); MONO # 0.7 (0.1-0.6); MONO % 5.3 % (1.0-6.0); RBC 4.99 10^6/uL (3.5-6.1); WHITE BLOOD COUNT 14.1 10^3/ul (4.5-11.0)
[2018-02-12] MEDS ORDERED: cefTRIAXone 1 gm 1 GM/100 ML BAG IVPB STA (00:02)
[2018-02-12] MEDS ORDERED: Pneumococcal 23-Valent Vaccine IM ONE (02:24)
--- NOTE | 2018-02-12 09:34 | RAD ---
HISTORY: epigastric pain COMPARISON: Comparison made with prior study 01/02/2018 FINDINGS: LUNGS: Patchy lower lobe atelectasis and or infiltrate right lung base. . Suspect mild left basilar atelectasis PLEURA: No significant pleural effusion identified, no pneumothorax apparent. CARDIOVASCULAR: Cardiomegaly. OSSEOUS STRUCTURES: No significant abnormalities. VISUALIZED UPPER ABDOMEN: Normal. OTHER FINDINGS: None. IMPRESSION: Patchy lower lobe atelectasis and or infiltrate right lung base. . Suspect mild left basilar atelectasis
--- NOTE | 2018-02-12 09:52 | CARD ---
APPROVED REPORT EKG Measurement Heart [id number] <Conclusion> Normal sinus rhythm Voltage criteria for left ventricular hypertrophy Cannot rule out Septal infarct, old LAD STTW changes c/w ischemia
[2018-02-12] MEDS ORDERED: Ciprofloxacin 400mg/200ml D5W 400 MG/200 ML BAG IVPB SCH (12:15)
[2018-02-12] MEDS ORDERED: Iohexol 240 (50 ml) ONE (12:16)
--- NOTE | 2018-02-12 15:19 | CT ---
PROCEDURE: CT chest dated 02/12/2018 HISTORY: Rule out pneumonia. COMPARISON: Comparison made with chest radiograph dated 02/11/2018. . Correlation also made with concurrent CT scan of the abdomen and pelvis. TECHNIQUE: Contiguous axial images were obtained through the chest without intravenous contrast enhancement. Sagittal and coronal reconstructions were performed. Radiation dose (DLP): 274.61 mGy-cm. This CT exam was performed using one or more of the following dose reduction techniques: Automated exposure control, adjustment of the mA and/or kV according to patient size, and/or use of iterative reconstruction technique. FINDINGS: LUNGS: Diffuse hazy ground-glass opacity seen throughout the upper and lower lobes with increased Um interstitial markings. Findings felt to represent pulmonary edema/CHF. Clinical correlation recommended. . There is mild dependent/ passive type atelectasis both posterior lower lung padilla. MEDIASTINUM: Heart is markedly enlarged. No significant pericardial effusion. Coronary artery calcifications are present. The ascending thoracic aorta measures approximate 3.8 cm and descending thoracic aorta measures approximately 3.0 cm. Three-vessel arch. Pulmonary trunk measures approximately 3.5 cm. There are multiple on small to medium-sized mediastinal lymph nodes. The largest right paratracheal lymph node measures approximately 2.3 cm and the 2nd subjacent right precarinal lymph node measures approximately 1.93 cm. Left lateral prevascular lymph node measures approximately 1.6 cm. Enlarged subcarinal lymph node measuring 3.5 cm. Evaluation for hilar adenopathy limited due to the lack of circulating intravenous contrast material. PLEURA: Moderate size right effusion and small left effusion. No evidence of pneumothorax. BONES: Mild multilevel degenerative spondylosis of the thoracic the as well as visualized lower cervical upper lumbar spine. There are no acute compression fractures no retropulsed fragments. UPPER ABDOMEN: Grossly unremarkable. OTHER FINDINGS: None. IMPRESSION: Diffuse ground-glass opacity seen throughout the in upper lobe lower lobes bilaterally. The interstitial markings are increased. Findings felt to represent mild pulmonary edema. Clinical correlation recommended. Moderate size right-sided effusion and small left-sided effusion. Mediastinal adenopathy. Marked cardiomegaly.
--- NOTE | 2018-02-12 16:18 | CT ---
PROCEDURE: CT Abdomen and Pelvis with Oral contrast. HISTORY: Abdominal pain COMPARISON: Correlation made with concurrent CT scan chest and prior CT scan of the abdomen pelvis dated 01/02 18 TECHNIQUE: Contiguous axial images of the abdomen and pelvis. Oral contrast was administered. No IV contrast given. 2D sagittal and coronal reformats generated. Radiation dose: Total exam DLP = 386.23 mGy-cm. This CT exam was performed using one or more of the following dose reduction techniques: Automated exposure control, adjustment of the mA and/or kV according to patient size, and/or use of iterative reconstruction technique. FINDINGS: LOWER THORAX: Small bilateral effusions right larger than left. Marked cardiomegaly. LIVER: Liver exhibits normal size measuring approximately 17 cm in CC dimension. . There are a few tiny foci of low attenuation scattered throughout the hepatic parenchyma too small to characterize. Follow-up the the contrast enhanced CT scan of the liver could be performed further evaluation if necessary. GALLBLADDER AND BILE DUCTS: Gallbladder is physiologically distended. No evidence of intraluminal gallbladder calculi. PANCREAS: The visualized unenhanced pancreas appears grossly unremarkable without definitive masses collections or calcifications. SPLEEN: Spleen exhibits normal size and attenuation pattern. ADRENALS: There are no adrenal lesions seen. KIDNEYS AND URETERS: Kidneys demonstrate relatively symmetric size. No evidence of nephrolithiasis or hydronephrosis. BLADDER: Urinary bladder is incompletely distended which in part accounts for thick-walled appearance. Muscular hypertrophy presumably contributes. Note that the possibility of other intrinsic/invasive wall lesion not excluded. Clinical correlation recommended. REPRODUCTIVE: Prostate gland measures approximately 3.75 cm in transverse dimension. Prostatic calcifications are present APPENDIX: Normal-appearing appendix best seen on axial image number [id number] 128. BOWEL: Present evaluation of the bowel is limited due to the lack of incomplete opacification. The stomach is incompletely distended which in part accounts for thick-walled appearance. There also appears to be some wall thickening of short segment of distal ileum ; rule out inflammatory and/or infectious enteritis. No evidence of acute mechanical small bowel obstruction with oral contrast material extending into the colon to the level of the rectum. . There are a few scattered colonic diverticula seen along distal descending and sigmoid colon. Wall thickening of a short segment of the sigmoid colon is present. While these findings could be secondary to incomplete distention/peristalsis with adherent unopacified bowel, the possibility of a mild localized acute diverticulitis or colitis must be considered. Clinical correlation with history physical exam and laboratory values. , recommended. PERITONEUM: No gross free intraperitoneal air. No free or loculated fluid collections. . Small fat containing bilateral inguinal hernias are present. LYMPH NODES: Unremarkable. No enlarged lymph nodes. VASCULATURE: Unremarkable. No aortic aneurysm. BONES: No acute compression fractures. Mild multilevel degenerative spondylosis of the lower thoracic and lumbar spine. OTHER FINDINGS: None. IMPRESSION: Small bilateral effusions right larger than left. Marked cardiomegaly. There also appears to be some wall thickening of short segment of distal ileum ; rule out inflammatory and/or infectious enteritis. There are scattered colonic diverticula seen along descending and sigmoid colon. Wall thickening of a short segment of the sigmoid colon is present. While these findings could be secondary to incomplete distention/peristalsis with adherent unopacified bowel however the possibility of a mild localized acute diverticulitis or colitis not excluded. Clinical correlation with history physical exam and laboratory values. , recommended. . There also appears to be some localize wall thickening of
[2018-02-12] MEDS ORDERED: Sodium Chloride 0.45% 1,000 ML IV SCH (16:45)
--- NOTE | 2018-02-12 17:17 | HP ---
HISTORY OF PRESENT ILLNESS: The patient is 67 years old, came to Emergency Room because of not feeling well, having abdominal pain, had diarrhea 5 times yesterday. Denies any nausea. Does complain of decreased appetite, scanty cough. No hemoptysis, no hematemesis, no rectal bleeding. The patient states that he had hemorrhoidectomy almost a month ago. He was placed on stool softener and he was given some antibiotics. He does not know the name. PAST MEDICAL HISTORY: Significant for 1. Hypertension. 2. History of angioplasty. 3. Noninsulin-dependent diabetes. 4. Hyperlipidemia. The patient has complaint of feeling bloated and decreased appetite. ALLERGIES: HE IS NOT ALLERGIC TO ANY MEDICATIONS. MEDICATIONS AT HOME: He is on metformin 500 daily, hydrochlorothiazide 25 mg daily, metoprolol 50 mg twice a day, glimepiride 4 mg daily, Diflucan 100 daily, Colace 100 mg twice a day and Augmentin. SOCIAL HISTORY: He is , lives with his . He used to be smoker in the past. REVIEW OF SYSTEMS: Significant for abdominal pain and bloating. PHYSICAL EXAMINATION: GENERAL: The patient is awake, alert, oriented, communicative. VITAL SIGNS: Afebrile, pulse 84, respirations 19, blood pressure 131/96. LUNGS: Bilateral fair airflow. No rhonchi or crackles. HEART: S1 and S2 audible. ABDOMEN: Distended, bowel sounds are sluggish. NEUROLOGICAL: He is awake, alert, oriented, communicative. LABORATORY DATA: WBC is 14.1, hemoglobin 15, hematocrit 44, platelets of 267. Chemistry: Sodium 142, potassium 3.7, chloride 104, CO2 of 22, BUN 13, creatinine 1.1, blood sugar of 133, AST 64, ALT 92. EKG shows normal sinus rhythm, left ventricular hypertrophy. X-ray of chest shows patchy lower lobe atelectasis versus infiltrate of the right lung base. ASSESSMENT AND PLAN: 1. Abdominal pain, etiology unclear. He had right basilar infiltrate versus atelectasis. 2. Noninsulin-dependent diabetes. 3. Hypertension. 4. Hyperlipidemia. 5. Intermittent diarrhea rule out clostridium difficile. PLAN: I will order for CT scan of the abdomen and pelvis and also order CT scan of the chest. We will start him on IV antibiotic, IV fluid, clear liquid. GI consult by Dr. Mike has been requested. We will follow up the patient in a.m. Yung Metzger MD
[2018-02-12] MEDS: metroNIDAZOLE IV 250mg/50 ml 250 MG/50 ML BAG IV SCH ×2 (17:26→22:03)
[2018-02-13 06:31] LABS: BASO # 0.01 K/mm3 (0.0-2.0); BASO % 0.1 % (0.0-3.0); EOS # 0.1 (0.0-0.7); EOS % 1.1 % (1.5-5.0); GRAN # 6.19 (1.4-6.5); GRAN % 72.6 % (50.0-68.0); LYMPH # 1.5 (1.2-3.4); LYMPH % 17.8 % (22.0-35.0); MEAN CELL VOLUME 88.2 fl (80.0-105.0); MEAN CORPUSCULAR HEMOGLOBIN 29.3 pg (25.0-35.0); MEAN CORPUSCULAR HGB CONC 33.2 g/dl (31.0-37.0); MEAN PLATELET VOLUME 10.9 fl (7.0-11.0); MONO # 0.7 (0.1-0.6); MONO % 8.4 % (1.0-6.0); RBC 4.33 10^6/uL (3.5-6.1); RED CELL DISTRIBUTION WIDTH 14.1 % (11.5-14.5); WHITE BLOOD COUNT 8.5 10^3/ul (4.5-11.0)
[2018-02-13] MEDS: metroNIDAZOLE IV 250mg/50 ml 250 MG/50 ML BAG IV SCH ×3 (06:40→22:22)
[2018-02-13 06:41] LABS: HEMOGLOBIN 12.7 g/dL (14.0-18.0)
[2018-02-13 06:47] LABS: ALB/GLOB RATIO 1.2 (1.1-1.8); ALBUMIN 3.1 g/dL (3.0-4.8); ALT/SGPT 73 U/L (7-56); AST/SGOT 46 U/L (17-59); BLOOD UREA NITROGEN 8 mg/dL (7-21); CALCIUM 7.7 mg/dL (8.4-10.5); GFR NON-AFRICAN AMERICAN > 60
[2018-02-13 06:50] LABS: B-TYPE NATRIURETIC PEPTIDE 4670 pg/mL (0-450)
[2018-02-13] MEDS: Insulin Reg-LOW-Coverage SC SCH ×2 (07:38→16:57)
--- NOTE | 2018-02-13 08:12 | PN ---
DATE: 02/13/2018 SUBJECTIVE: The patient has no complaints of any chest pain. No shortness of breath. No headaches or dizziness. PHYSICAL EXAMINATION: VITAL SIGNS: Temperature is 98.3, pulse of 103, blood pressure 140/98, respirations 19. GENERAL: The patient is lying in bed, flat, comfortable. HEENT: No oral lesion. Anicteric sclerae. Moist mucosa. NECK: No JVD, adenopathy, or thyromegaly. CARDIOVASCULAR: S1 and S2, regular. No murmurs, rubs, or gallops. LUNGS: Clear to auscultation bilaterally. No wheeze, rales, or rhonchi. ABDOMEN: Bowel sounds are positive, soft, nontender and nondistended. EXTREMITIES: no cyanosis, clubbing or edema. LABORATORY DATA: White count of 14.1, hemoglobin 15.2. ASSESSMENT: 1. Abdominal pain. 2. Pneumonia. 3. Diabetes type 2. 4. Hypertension. 5. Dyslipidemia. 6. Right pleural effusion. 7. Mediastinal adenopathy. PLAN: The patient is feeling better. The patient's abdominal pain is better. He had a CT of the chest that showed a diffuse ground-glass opacity seen throughout the upper lobe, lower lobe bilaterally. The interstitial markings are increased. There a moderate size right pleural effusion. The patient is currently on IV fluids. He is on Protonix IV. He is going to be on Zofran as needed. and that has been ordered; liquid diet. I will get consultation with Dr. Minaya, from the consultants. Yuri Albrecht MD
[2018-02-13] MEDS: Cefepime IV 2 gm in NS 2 GM/100 ML BAG IVPB SCH ×2 (09:34→22:22)
[2018-02-13] MEDS ORDERED: cefTRIAXone 1 gm 1 GM/100 ML BAG IVPB SCH (10:00)
[2018-02-13] MEDS ORDERED: Potassium Chloride 20 mEq ER Tab PO ONE (10:36)
--- NOTE | 2018-02-13 11:36 | CP.PCM.CON ---
History of Present Illness - History of Present Illness History of Present Illness: 67 year old male with PMH of DM, HTN, CAD, hemorrhoids was admitted last month in [facility] for perirectal abscess and he underwent I and D and was on antibiotic therapy. This time, he started having a bloated sensation over the past 2-3 days , then followed by nausea, bilious vomiting and loose bowel movements. He developed chills but denies having fevers. He was also having shortness of breath at rest and dyspnea on exertion but no chest pain. He denies sore throat , no rhinorrhea, no dysphagia, no headache or dizziness. CT chest, abdomen and pelvis were done which is showing probable CHF, enteritis and possible colitis. Infectious diseases consult is requested to further evaluate and manage. Review of Systems - Review of Systems All systems: reviewed and no additional remarkable complaints except (as per HPI ) Past Patient History - Infectious Disease Hx of Infectious Diseases: None - Tetanus Immunizations Tetanus Immunization: Unknown - Past Social History Smoking Status: Former Smoker - CARDIAC Hx Cardia Arrhythmia: Yes Hx Hypertension: Yes - PULMONARY Hx Pneumonia: Yes - NEUROLOGICAL Hx Neurological Disorder: No - HEENT Hx HEENT Problems: No - RENAL Hx Chronic Kidney Disease: No - ENDOCRINE/METABOLIC Hx Diabetes Mellitus Type 2: Yes - HEMATOLOGICAL/ONCOLOGICAL Hx Blood Disorders: No - INTEGUMENTARY Hx Dermatological Problems: No - MUSCULOSKELETAL/RHEUMATOLOGICAL Hx Falls: No - GASTROINTESTINAL Hx Gastroesophageal Reflux: Yes - GENITOURINARY/GYNECOLOGICAL Hx Genitourinary Disorders: No - PSYCHIATRIC Hx Psychophysiologic Disorder: No - SURGICAL HISTORY Hx Amputation: No Hx Appendectomy: No Hx Cardiac Catheterization: Yes Hx Cholecystectomy: No Hx Coronary Stent: Yes Hx Gastric Bypass Surgery: No Hx Hysterectomy: No Hx Joint Replacement: No Hx Kidney Transplant: No Hx Liver Transplant: No Hx Mastectomy: No Hx Musculoskeletal Surgery: No Hx Open Heart Surgery: No Hx Orthopedic Surgery: No Hx Splenectomy: No Hx Valve Replacement: No - ANESTHESIA Hx Anesthesia Reactions: No Meds Allergies/Adverse Reactions: Allergies Allergy/AdvReac Type Severity Reaction Status Date / Time No Known Allergies Allergy Verified 01/02/18 17:43 - Medications Medications: Current Medications Acetaminophen (Tylenol 325mg Tab) 650 mg PO Q4H PRN PRN Reason: Fever >100.5 F Ceftriaxone Sodium (Rocephin 1 Gram Ivpb) 1 gm in 100 mls @ 100 mls/hr IVPB DAILY UMER PRN Reason: Protocol Metronidazole (Flagyl) 250 mg in 50 mls @ 100 mls/hr IV Q8 UMER PRN Reason: Protocol Stop: 02/17/18 16:46 Last Admin: 02/12/18 22:03 Dose: 100 mls/hr Ondansetron HCl (Zofran Inj) 4 mg IVP Q4H PRN PRN Reason: Nausea/Vomiting Pantoprazole Sodium (Protonix Inj) 40 mg IVP DAILY [facility] Last Admin: 02/12/18 13:21 Dose: 40 mg Physical Exam - Constitutional Appears: Chronically Ill - Head Exam Head Exam: NORMAL INSPECTION - ENT Exam ENT Exam: Mucous Membranes Moist - Neck Exam Neck exam: Negative for: Lymphadenopathy, Meningismus - Respiratory Exam Respiratory Exam: Decreased Breath Sounds - Cardiovascular Exam Cardiovascular Exam: +S1, +S2 - GI/Abdominal Exam GI & Abdominal Exam: Soft. absent: Tenderness Results - Vital Signs Recent Vital Signs: Last Vital Signs Temp 98.3 F 02/12/18 16:00 Pulse 103 H 02/12/18 16:00 Resp 19 02/12/18 16:00 BP 140/98 H 02/12/18 16:00 Pulse Ox 96 02/12/18 16:00 - Labs Result Diagrams: 02/13/18 06:00 02/13/18 06:00 Labs: Laboratory Results - last 24 hr 02/12/18 02/12/18 02/12/18 07:43 11:14 16:24 POC Glucose (mg/dL) 147 H 133 H 170 H 02/12/18 21:38 POC Glucose (mg/dL) 169 H Assessment & Plan - Assessment and Plan (Free Text) Plan: Assessment systemic inflammatory response syndrome, consider sepsis from enteritis R/O colitis in this patient also presenting with probable acute on chronic CHF history of fungemia, source unclear history of perirectal abscess with associated thrombosed hemorrhoids with E. coli and Group B Strep DM HTN CAD S/P PCI hemorrhoids Plan started patient on Cefepime and Flagyl pending blood and stool cx, fecal leukocytes; reviewed CT chest - probable CHF, but also showing mediastinal lymphadenopathy - would recommend Pulmonary evaluation follow up plans of Cardiology will monitor clinically
--- NOTE | 2018-02-13 13:05 | CON ---
DATE: 02/13/2018 HISTORY OF PRESENT ILLNESS: The patient is a 67-year-old male who presents with nausea and vomiting as well as dyspnea. The patient's past medical history is notable for diabetes mellitus, hypertension and hypercholesterolemia. He is status post PTCA and stent after a myocardial infarction noted in 2014. The patient denies chest pain, denies shortness of breath. His catheterization in 2015 with a bare-metal stent in the LAD. He does admit to shortness of breath. SOCIAL HISTORY: He does not smoke. REVIEW OF SYSTEMS: A 14-point review of systems was reviewed in detail. No additional symptoms are noted. PHYSICAL EXAMINATION: VITAL SIGNS: Blood pressure 145/98, heart rate in the 90s. NECK: Negative JVD. LUNGS: Decreased breath sounds bilaterally. HEART: Reveal S1, S2. EXTREMITIES: Without edema. LABORATORY DATA AND IMAGING: EKG shows normal sinus rhythm with diffuse ST-T changes. Hemoglobin is 12.7. Chemistries: BUN and creatinine are unremarkable. Glucose is 136, potassium is 3.5. CT scan reveals CHF like findings. The echocardiogram reveals an ejection fraction of 38% with severe pulmonary hypertension. IMPRESSION: 1. Acute systolic congestive heart failure. 2. Dilated cardiomyopathy. 3. History of anterior wall myocardial infarction. 4. Severe pulmonary hypertension. 5. Diabetes mellitus. 6. Hypertension. 7. Hypercholesterolemia. Given these findings, we will give the patient a trial of IV Lasix today. Awaiting for GI workup for his nausea and vomiting and diarrhea. The patient will need extensive cardiac workup. Declan Minaya MD
--- NOTE | 2018-02-13 15:19 | CP.PCM.CON ---
<Myrna Malin - Last Filed: 02/14/18 10:33> History of Present Illness - History of Present Illness History of Present Illness: PGY-[address] Mckeon's service 67 year old male with PMH of DM, HTN, CAD, hemorrhoids presented to the Emergency department complaining of nausea, diarrhea, and intermittent abdominal pain, which started a few days ago. Patient reported multiple episodes of diarrhea over the past 2 days. He mentions that along with his abdominal pain, crampy sensation and he is experiencing a bloating sensation. He states that he had similar episode previously which resolved after about 1 month. Patient denies any recent travels, eating anything unusual, or contact with any sick people at home. He also reports mild SOB and chill on admission. He denies fevers, chest pain, dyspnea on exertion, cough, vomiting, back pain, neck pain, headache, dizziness, or any other complaint. He was admitted last month in [facility] for perirectal abscess and he underwent I and D and was on antibiotic therapy. CT chest, abdomen and pelvis were done which is showing probable CHF, enteritis and possible colitis. Infectious diseases consult is requested to further evaluate and manage. Patient denies previous colonscopy or endoscopy. PMH: DM, HTN, CAD, hemorrhoids, GERD PSH: cardiac stents social history: smoking, 1/2ppd, denies alcohol use or illicit drug use allergy: NKDA Review of Systems - Review of Systems All systems: reviewed and no additional remarkable complaints except Past Patient History - Infectious Disease Hx of Infectious Diseases: None - Tetanus Immunizations Tetanus Immunization: Unknown - Past Social History Smoking Status: Former Smoker - CARDIAC Hx Cardia Arrhythmia: Yes Hx Hypertension: Yes - PULMONARY Hx Pneumonia: Yes - NEUROLOGICAL Hx Neurological Disorder: No - HEENT Hx HEENT Problems: No - RENAL Hx Chronic Kidney Disease: No - ENDOCRINE/METABOLIC Hx Diabetes Mellitus Type 2: Yes - HEMATOLOGICAL/ONCOLOGICAL Hx Blood Disorders: No - INTEGUMENTARY Hx Dermatological Problems: No - MUSCULOSKELETAL/RHEUMATOLOGICAL Hx Falls: No - GASTROINTESTINAL Hx Gastroesophageal Reflux: Yes - GENITOURINARY/GYNECOLOGICAL Hx Genitourinary Disorders: No - PSYCHIATRIC Hx Psychophysiologic Disorder: No - SURGICAL HISTORY Hx Amputation: No Hx Appendectomy: No Hx Cardiac Catheterization: Yes Hx Cholecystectomy: No Hx Coronary Stent: Yes Hx Gastric Bypass Surgery: No Hx Hysterectomy: No Hx Joint Replacement: No Hx Kidney Transplant: No Hx Liver Transplant: No Hx Mastectomy: No Hx Musculoskeletal Surgery: No Hx Open Heart Surgery: No Hx Orthopedic Surgery: No Hx Splenectomy: No Hx Valve Replacement: No - ANESTHESIA Hx Anesthesia Reactions: No Meds Allergies/Adverse Reactions: Allergies Allergy/AdvReac Type Severity Reaction Status Date / Time No Known Allergies Allergy Verified 01/02/18 17:43 - Medications Medications: Current Medications Acetaminophen (Tylenol 325mg Tab) 650 mg PO Q4H PRN PRN Reason: Fever >100.5 F Glimepiride (Amaryl) 4 mg PO DAILY [facility] Last Admin: 02/13/18 09:35 Dose: 4 mg Metronidazole (Flagyl) 250 mg in 50 mls @ 100 mls/hr IV Q8 UMER PRN Reason: Protocol Stop: 02/17/18 16:46 Last Admin: 02/13/18 15:03 Dose: 100 mls/hr Cefepime HCl (Maxipime 2gm) 2 gm in 100 mls @ 100 mls/hr IVPB Q12 UMER PRN Reason: Protocol Stop: 02/18/18 10:01 Last Admin: 02/13/18 09:34 Dose: 100 mls/hr Insulin Human Regular (Humulin R Low) 0 units SC ACBD [facility] PRN Reason: Protocol Last Admin: 02/13/18 07:38 Dose: Not Given Lisinopril (Zestril) 10 mg PO DAILY [facility] Last Admin: 02/13/18 15:03 Dose: 10 mg Metoprolol Tartrate (Lopressor) 50 mg PO BID [facility] Ondansetron HCl (Zofran Inj) 4 mg IVP Q4H PRN PRN Reason: Nausea/Vomiting Pantoprazole Sodium (Protonix Ec Tab) 40 mg PO ACB [facility] Physical Exam - Constitutional Appears: Well, No Acute Distress - Head Exam Head Exam: ATRAUMATIC, NORMOCEPHALIC - Eye Exam Eye Exam: EOMI, Normal appearance - ENT Exam ENT Exam: Mucous Membranes Moist - Respiratory Exam Respiratory Exam: Clear to Auscultation Bilateral, NORMAL BREATHING PATTERN. absent: Rhonchi, Wheezes, Respiratory Distress - Cardiovascular Exam Cardiovascular Exam: REGULAR RHYTHM, +S1, +S2. absent: Bradycardia, Tachycardia , Systolic Murmur - GI/Abdominal Exam GI & Abdominal Exam: Normal Bowel Sounds, Soft. absent: Distended, Firm, Tenderness - Extremities Exam Extremities exam: Positive for: normal inspection. Negative for: pedal edema, tenderness - Neurological Exam Neurological exam: Alert, Oriented x3 Results - Vital Signs Recent Vital Signs: Last Vital Signs Temp 97.5 F L 02/13/18 13:39 Pulse 108 H 02/13/18 13:57 Resp 20 02/13/18 13:39 BP 178/110 H 02/13/18 13:57 Pulse Ox 96 02/13/18 13:39 - Labs Result Diagrams: 02/13/18 06:00 02/13/18 06:00 Labs: Laboratory Results - last 24 hr 02/12/18 02/12/18 02/13/18 16:24 21:38 06:00 WBC 8.5 D RBC 4.33 Hgb 12.7 L D Hct 38.2 L MCV 88.2 MCH 29.3 MCHC 33.2 RDW 14.1 Plt Count 231 MPV 10.9 Gran % 72.6 H Lymph % (Auto) 17.8 L [place] % (Auto) 8.4 H Eos % (Auto) 1.1 L Baso % (Auto) 0.1 Gran # 6.19 Lymph # (Auto) 1.5 [place] # (Auto) 0.7 H Eos # (Auto) 0.1 Baso # (Auto) 0.01 Sodium Potassium Chloride Carbon Dioxide Anion Gap BUN Creatinine Est GFR ( Amer) Est GFR (Non-Af Amer) POC Glucose (mg/dL) 170 H 169 H Random Glucose Calcium Total Bilirubin AST ALT Alkaline Phosphatase NT-Pro-B Natriuret Pep Total Protein Albumin Globulin Albumin/Globulin Ratio Procalcitonin 02/13/18 02/13/18 02/13/18 06:00 06:00 07:27 WBC RBC Hgb Hct MCV MCH MCHC RDW Plt Count MPV Gran % Lymph % (Auto) [place] % (Auto) Eos % (Auto) Baso % (Auto) Gran # Lymph # (Auto) [place] # (Auto) Eos # (Auto) Baso # (Auto) Sodium 142 Potassium 3.5 L Chloride 108 H Carbon Dioxide 23 Anion Gap 14 BUN 8 Creatinine 1.0 Est GFR ( Amer) > 60 Est GFR (Non-Af Amer) > 60 POC Glucose (mg/dL) 130 H Random Glucose 136 H Calcium 7.7 L Total Bilirubin 0.8 AST 46 ALT 73 H Alkaline Phosphatase 58 NT-Pro-B Natriuret Pep 4670 H Total Protein 5.6 L Albumin 3.1 Globulin 2.5 Albumin/Globulin Ratio 1.2 Procalcitonin 0.09 L Assessment & Plan - Assessment and Plan (Free Text) Assessment: 67 year old male with PMH of DM, HTN, CAD, hemorrhoids presented to the Emergency department complaining of nausea, diarrhea, and intermittent abdominal pain Plan: - CT abd/pel showed some wall thickening of short segment of distal ileum, scattered colonic diverticula along descending and sigmoid colon - continue antibiotics - elective colonscopy - will order IBD serology case reviewed nad discussed with Dr Mckeon <Naomy Mckeon V - Last Filed: 04/30/18 14:27> Results - Vital Signs Recent Vital Signs: Last Vital Signs Temp 98.1 F 02/15/18 08:29 Pulse 71 02/15/18 09:44 Resp 18 02/15/18 08:29 BP 131/88 02/15/18 09:44 Pulse Ox 98 02/15/18 16:42 - Labs Result Diagrams: 02/13/18 06:00 02/15/18 06:00 Attending/Attestation - Attestation I have personally seen and examined this patient.: Yes I have fully participated in the care of the patient.: Yes I have reviewed all pertinent clinical information: Yes Notes (Text): This is a delayed addendum to GI consult report dictated by the Camp Attendant.The patient was seen and examined earlier. Medical records, lab studies, imagings were reviewed. Last 24 hours events reviewed. Agreed with the above treatment plan as outlined in Camp Attendant 's notes the with the addition of the following Series CT scan was reviewed infectious vs inflammatory IBD serology Follow-up stool studies Continue empiric antibiotic Discussed with the PCP and patient at length 04/30/18 14:24
[2018-02-14] MEDS: metroNIDAZOLE IV 250mg/50 ml 250 MG/50 ML BAG IV SCH ×3 (06:35→22:38)
[2018-02-14 08:20] VITALS: RESP 18
[2018-02-14] MEDS: Insulin Reg-LOW-Coverage SC SCH ×2 (08:23→16:25)
[2018-02-14] MEDS: Pantoprazole 40 mg EC Tab PO SCH (08:23)
--- NOTE | 2018-02-14 09:57 | RAD ---
HISTORY: SOB. effusion COMPARISON: 02/11/2018 TECHNIQUE: Chest PA and lateral FINDINGS: LUNGS: There is improvement in the minimal infiltrate at the right lung base. PLEURA: Small bilateral pleural effusions with blunting in the costophrenic sulcus CARDIOVASCULAR: Normal. OSSEOUS STRUCTURES: No significant abnormalities. VISUALIZED UPPER ABDOMEN: Normal. OTHER FINDINGS: None. IMPRESSION: Improvement in minimal infiltrate at the right lung base. Small bilateral pleural effusions
[2018-02-14] MEDS: Cefepime IV 2 gm in NS 2 GM/100 ML BAG IVPB SCH ×2 (10:01→23:50)
--- NOTE | 2018-02-14 10:41 | CP.PCM.PN ---
<Myrna Malin - Last Filed: 02/15/18 08:15> Subjective - Date & Time of Evaluation Date of Evaluation: 02/14/18 Time of Evaluation: 10:00 - Subjective Subjective: PGY-2 GI progress note for Dr. Mckeon's service Patient seen and examined at bedside. Patient states that he is feeling better. He states that his diarrhea has resolved, last bowel movement was yesterday. He continues to report intermittent abd spasms, however it is improving from yesterday. Patient denies n/v, diarrhea. He states that he is hungry and would like to have his diet advanced from liquid. He states that he had sandwich yesterday and tolerated it well. Objective - Vital Signs/Intake and Output Vital Signs (last 24 hours): Temp Pulse Resp BP Pulse Ox 98.3 F 72 18 132/82 95 02/14/18 08:19 02/14/18 10:01 02/14/18 08:19 02/14/18 10:01 02/14/18 08:19 - Medications Medications: Current Medications Acetaminophen (Tylenol 325mg Tab) 650 mg PO Q4H PRN PRN Reason: Fever >100.5 F Last Admin: 02/13/18 20:08 Dose: 650 mg Glimepiride (Amaryl) 4 mg PO DAILY [facility] Last Admin: 02/14/18 10:00 Dose: 4 mg Metronidazole (Flagyl) 250 mg in 50 mls @ 100 mls/hr IV Q8 UMER PRN Reason: Protocol Stop: 02/17/18 16:46 Last Admin: 02/14/18 06:35 Dose: 100 mls/hr Cefepime HCl (Maxipime 2gm) 2 gm in 100 mls @ 100 mls/hr IVPB Q12 UMER PRN Reason: Protocol Stop: 02/18/18 10:01 Last Admin: 02/14/18 10:01 Dose: 100 mls/hr Insulin Human Regular (Humulin R Low) 0 units SC ACBD [facility] PRN Reason: Protocol Last Admin: 02/14/18 08:23 Dose: 1 units Lisinopril (Zestril) 10 mg PO DAILY [facility] Last Admin: 02/14/18 10:00 Dose: 10 mg Metoprolol Tartrate (Lopressor) 50 mg PO BID [facility] Last Admin: 02/14/18 10:01 Dose: 50 mg Ondansetron HCl (Zofran Inj) 4 mg IVP Q4H PRN PRN Reason: Nausea/Vomiting Pantoprazole Sodium (Protonix Ec Tab) 40 mg PO ACB [facility] Last Admin: 02/14/18 08:23 Dose: 40 mg - Labs Labs: 02/13/18 06:00 02/13/18 06:00 - Constitutional Appears: Well, No Acute Distress - Head Exam Head Exam: ATRAUMATIC, NORMOCEPHALIC - Eye Exam Eye Exam: EOMI, Normal appearance - ENT Exam ENT Exam: Mucous Membranes Moist - Respiratory Exam Respiratory Exam: Clear to Ausculation Bilateral, NORMAL BREATHING PATTERN. absent: Rales, Rhonchi, Wheezes, Respiratory Distress - Cardiovascular Exam Cardiovascular Exam: REGULAR RHYTHM, +S1, +S2. absent: Bradycardia, Tachycardia , Murmur - GI/Abdominal Exam GI & Abdominal Exam: Soft, Normal Bowel Sounds. absent: Distended, Firm, Guarding, Tenderness - Extremities Exam Extremities Exam: Normal Inspection. absent: Pedal Edema, Tenderness - Neurological Exam Neurological Exam: Alert, Awake, Oriented x3 - Skin Skin Exam: Dry, Intact, Normal Color, Warm Assessment and Plan - Assessment and Plan (Free Text) Assessment: 67 year old male with PMH of DM, HTN, CAD, hemorrhoids presented to the Emergency department complaining of nausea, diarrhea, and intermittent abdominal pain Plan: - CT abd/pel showed some wall thickening of short segment of distal ileum, scattered colonic diverticula along descending and sigmoid colon - continue antibiotics - advance diet to pureed - will attempt endoscopy later this week - will order IBD serology - consider quantiferon testing to rule out TB case reviewed and discussed with Dr Mckeon <Naomy Mckeon V - Last Filed: 04/30/18 14:37> Objective - Vital Signs/Intake and Output Vital Signs (last 24 hours): Temp Pulse Resp BP Pulse Ox 98.1 F 71 18 131/88 98 02/15/18 08:29 02/15/18 09:44 02/15/18 08:29 02/15/18 09:44 02/15/18 16:42 - Labs Labs: 02/13/18 06:00 02/15/18 06:00 Attending/Attestation - Attestation I have personally seen and examined this patient.: Yes I have fully participated in the care of the patient.: Yes I have reviewed all pertinent clinical information, including history, physical exam and plan: Yes Notes (Text): This is an addendum to GI followup report dictated by the On Site Manager.The patient was seen and examined earlier. Medical records, lab studies, imagings were reviewed. Last 24 hours events reviewed. Agreed with the above treatment plan as outlined in On Site Manager 's notes the with the addition of the following improving clinically with regard to diarrhea abdominal discomfort History of mediastinal adenopathy being followed by Dr. Mcintyre Request a diabetes serology and QuantiFERON ID follow-up noted Discussed with the patient 04/30/18 14:34
--- NOTE | 2018-02-14 11:43 | CP.PCM.PN ---
Subjective - Date & Time of Evaluation Date of Evaluation: 02/14/18 Time of Evaluation: 09:40 - Subjective Subjective: Feeling better, no more nausea, no diarrhea since yesterday, tolerating liquid diet, no fevers. Objective - Vital Signs/Intake and Output Vital Signs (last 24 hours): Temp Pulse Resp BP Pulse Ox 98.1 F 103 H 19 130/82 95 02/13/18 17:41 02/13/18 17:41 02/13/18 17:41 02/13/18 17:41 02/13/18 17:41 Intake and Output: 02/13/18 02/14/18 18:59 06:59 Intake Total 960 Balance 960 - Medications Medications: Current Medications Acetaminophen (Tylenol 325mg Tab) 650 mg PO Q4H PRN PRN Reason: Fever >100.5 F Last Admin: 02/13/18 20:08 Dose: 650 mg Glimepiride (Amaryl) 4 mg PO DAILY [facility] Last Admin: 02/13/18 09:35 Dose: 4 mg Metronidazole (Flagyl) 250 mg in 50 mls @ 100 mls/hr IV Q8 UMER PRN Reason: Protocol Stop: 02/17/18 16:46 Last Admin: 02/14/18 06:35 Dose: 100 mls/hr Cefepime HCl (Maxipime 2gm) 2 gm in 100 mls @ 100 mls/hr IVPB Q12 UMER PRN Reason: Protocol Stop: 02/18/18 10:01 Last Admin: 02/13/18 22:22 Dose: 100 mls/hr Insulin Human Regular (Humulin R Low) 0 units SC ACBD [facility] PRN Reason: Protocol Last Admin: 02/13/18 16:57 Dose: Not Given Lisinopril (Zestril) 10 mg PO DAILY [facility] Last Admin: 02/13/18 15:03 Dose: 10 mg Metoprolol Tartrate (Lopressor) 50 mg PO BID [facility] Last Admin: 02/13/18 17:18 Dose: 50 mg Ondansetron HCl (Zofran Inj) 4 mg IVP Q4H PRN PRN Reason: Nausea/Vomiting Pantoprazole Sodium (Protonix Ec Tab) 40 mg PO ACB [facility] - Labs Labs: 02/13/18 06:00 02/13/18 06:00 - Constitutional Appears: Non-toxic, Chronically Ill - Head Exam Head Exam: NORMAL INSPECTION - ENT Exam ENT Exam: Mucous Membranes Moist - Neck Exam Neck Exam: absent: Meningismus - Respiratory Exam Respiratory Exam: Decreased Breath Sounds - Cardiovascular Exam Cardiovascular Exam: +S1, +S2 - GI/Abdominal Exam GI & Abdominal Exam: Soft. absent: Tenderness Assessment and Plan - Assessment and Plan (Free Text) Plan: Assessment systemic inflammatory response syndrome, consider sepsis from acute enteritis in this patient also presenting with probable acute on chronic CHF history of fungemia, source unclear history of perirectal abscess with associated thrombosed hemorrhoids with E. coli and Group B Strep DM HTN CAD S/P PCI hemorrhoids Plan continue Cefepime and Flagyl day 2; blood cx are negative, fecal leukocytes negative; reviewed CT chest - probable CHF, but also showing mediastinal lymphadenopathy - would recommend Pulmonary evaluation follow up plans of Cardiology will continue to monitor clinically
--- NOTE | 2018-02-14 12:22 | PN ---
DATE: 02/14/2018 SUBJECTIVE: The patient has no complaints of any chest pain. No shortness of breath. He says his breathing is better. He has had no abdominal pain. PHYSICAL EXAMINATION: VITAL SIGNS: Temperature is 98.3, pulse is 72, blood pressure is 132/82, respirations 18. GENERAL: The patient is lying in bed, flat, comfortable. HEENT: No oral lesion. Anicteric sclerae. Moist mucosa. NECK: No JVD, adenopathy, or thyromegaly. CARDIOVASCULAR: S1 and S2, regular. No murmurs, rubs, or gallops. LUNGS: Clear to auscultation bilaterally. No wheeze, rales, or rhonchi. ABDOMEN: Bowel sounds are positive, soft, nontender and nondistended. EXTREMITIES: No cyanosis, clubbing or edema. LABORATORY DATA: Chest x-ray shows improvement in the infiltrate of the right lung base. ASSESSMENT: 1. Abdominal pain, resolved. 2. Acute congestive heart failure secondary to systolic dysfunction, improving. 3. Pleural effusion, improving. 4. Diabetes type 2. 5. Hypertension. 6. Dyslipidemia. 7. Mediastinal adenopathy. PLAN: The patient is currently comfortable. He is being followed by Cardiology and also by GI. I did speak to Dr. Mckeon yesterday. He is on potassium replacement. The patient has had blood cultures and C. diff that was negative. He is on Protonix daily. He is on lisinopril for hypertension. I will get Pulmonary evaluation as well for the mediastinal adenopathy. Condition is stable. Activities increase as tolerated. Yuri Albrecht MD
--- NOTE | 2018-02-14 14:37 | PN ---
DATE: 02/14/2018 CARDIOLOGY FOLLOWUP SUBJECTIVE: The patient's breathing is better after IV Lasix. PHYSICAL EXAMINATION VITAL SIGNS: Blood pressure is 128/81, heart rate is in the 70s. NECK: Negative JVD. LUNGS: Without rales. Clear to auscultation. HEART: Reveals S1 and S2. EXTREMITIES: Without edema. LABORATORY DATA: Hemoglobin is 12.7. BUN and creatinine is not measured today. Glucose is 240. IMPRESSION: 1. Acute systolic congestive heart failure, which is improved with IV Lasix. 2. Hypertension, which is better after restarting on lisinopril. 3. Dilated cardiomyopathy. 4. Coronary artery disease with multiple stents in the past. 5. Severe pulmonary hypertension. 6. Diabetes mellitus. 7. Hypercholesterolemia. PLAN: Given these findings, we will continue on p.o. Lasix. It is likely his chest x-ray findings due to his severe pulmonary hypertension. Once his breathing is better, we will consider further cardiac workup including stress test which can be done as an outpatient. We will need to check his potassium today. Declan Minaya MD
--- NOTE | 2018-02-14 22:23 | CON ---
DATE: 02/14/2018 PULMONARY CONSULT REFERRING PHYSICIAN: Yuri Albrecht MD. REASON FOR CONSULT: Pulmonary infiltrate, mediastinal adenopathy. HISTORY OF PRESENT ILLNESS: This is a 67-year-old gentleman, known history of cardiomyopathy, coronary artery disease, history of coronary stent, severe pulmonary hypertension. Admitted with nausea, vomiting, abdominal pain. X-rays suggested mediastinal adenopathy with pulmonary infiltrate. He was started on diuretics. Seen by Cardiology. Feels a little better. Does have snoring, daytime sleepy and tired. No chest pain. No nausea at present time. No abdominal pain. No dysuria. No leg swelling. PAST MEDICAL HISTORY: Cardiomyopathy, coronary artery disease, history of coronary stent, diabetes, hypertension, hyperlipidemia, may have sleep apnea syndrome. SOCIAL HISTORY: Nonsmoker, nondrinker. FAMILY HISTORY: No significant cardiopulmonary disease reported. ALLERGIES: NONE KNOWN. MEDICATIONS: He is on glimepiride 4 mg daily, Flagyl 250 mg every 8 hours, insulin coverage, Lasix 40 mg daily, metoprolol tartrate 50 mg twice a day, cefepime 2 g IV every 12 hours, Protonix 40 mg daily, Tylenol p.r.n., Zestril 10 mg daily, Zofran p.r.n. basis. REVIEW OF SYSTEMS: No headache, no rhinitis. Has a cough, shortness of breath. No chest pain. No more vomiting. No abdominal pain, dysuria, leg pain or leg swelling. PHYSICAL EXAMINATION: GENERAL: Sitting up in a chair, in no acute distress. VITAL SIGNS: Temp is 98, heart rate is 68, respiratory rate is 20, blood pressure 141/88, pulse ox 99% on room air. HEENT: Moist mucous membrane. Crowded airway. Mallampati score is 4. NECK: Supple. No JVD. LUNGS: Have crackles at bases. HEART: S1 and S2. ABDOMEN: Soft, nontender. No organomegaly. EXTREMITIES: No significant edema. NEUROLOGICAL: Awake and alert. Follows simple command. LABORATORY DATA: Shows hemoglobin 12.7, hematocrit 38.2, WBC 8.5, platelet is 231. Sodium 142, potassium 3.5, chloride 108, bicarbonate 23, BUN is 8, creatinine 1, glucose is 136, calcium is , AST 46, ALT 73, alk phos is 58. ProBNP 4670, total protein 5.6, albumin is 3.1, procalcitonin 0.09. Microbiology: Blood culture, stool for C. diff are unremarkable. CAT scan of the chest was done on 02/12/2018 shows bilateral pulmonary infiltrate, mediastinal adenopathy, also has a right-sided pleural effusion. There is also CT of the abdomen and pelvis done on admission, which shows small bilateral pleural effusion, marked cardiomegaly. There is wall thickening of the short segment of the distal ileum. There is also scattered diverticula. IMPRESSION AND PLAN: Cardiomyopathy, left ventricular ejection fraction in 30s; coronary artery disease; history of coronary stent; severe pulmonary hypertension; pleural effusion, diabetes, hypertension, hyperlipidemia, mediastinal adenopathy. I think his biggest problem is cardiomyopathy with coronary artery disease, already had stent. He may have a component of sleep apnea syndrome, which could be contributing to his cardiomyopathy and pulmonary hypertension. I agree with the present treatment. Optimize his cardiac care with diuretics, afterload reducers, beta-blockers. Of course, need to follow up CT of the chest to assure the stability of adenopathy. We will suggest PFT and sleep study upon discharge as outpatient. Continue to follow electrolyte. We will make further recommendation depending on the patient's progress with diuretics and afterload reducers. Thank you and we will follow with you. Roosevelt Mcintyre MD
[2018-02-15] MEDS: metroNIDAZOLE IV 250mg/50 ml 250 MG/50 ML BAG IV SCH (05:37)
[2018-02-15] MEDS ORDERED: Potassium Chloride 20 mEq ER Tab PO ONE ×2 (07:03→11:00)
[2018-02-15 08:08] LABS: ALB/GLOB RATIO 1.2 (1.1-1.8); ALBUMIN 3.4 g/dL (3.0-4.8); ALT/SGPT 51 U/L (7-56); AST/SGOT 26 U/L (17-59); BLOOD UREA NITROGEN 9 mg/dL (7-21); CALCIUM 8.3 mg/dL (8.4-10.5)
[2018-02-15] MEDS: Pantoprazole 40 mg EC Tab PO SCH (08:11)
[2018-02-15] MEDS: Insulin Reg-LOW-Coverage SC SCH (08:14)
[2018-02-15 08:30] VITALS: BP 131/88; PULSE 71; TEMP 98.1; O2SAT 98
[2018-02-15 08:49] LABS: GFR NON-AFRICAN AMERICAN > 60
[2018-02-15] MEDS: Cefepime IV 2 gm in NS 2 GM/100 ML BAG IVPB SCH (09:38)
--- NOTE | 2018-02-15 10:37 | DS ---
The patient has no complaint of any chest pain. No shortness of breath. No headaches or dizziness. He was admitted to hospital because he was having abdominal pain. His abdominal pain is improved. He is on IV antibiotics. He also was having heart failure secondary to systolic dysfunction. The patient was placed on IV diuretics and had improvement of his symptoms. The patient is going to be on oral Lasix. He was seen by Pulmonary and Cardiology. He was offered an endoscopy and colonoscopy, but he is refusing. His potassium was replaced. He is going to be discharged home to follow up with his specialist as well as myself. He has no complaints of any headaches or dizziness. No nausea, no vomiting. OBJECTIVE: VITAL SIGNS: He has a temperature of 98.1, pulse of 71, blood pressure 131/88, respirations 18, O2 saturation 98%. GENERAL: The patient is lying in bed, flat, comfortable. HEENT: No oral lesion. Anicteric sclerae. Moist mucosa. NECK: No JVD, adenopathy, or thyromegaly. CARDIOVASCULAR: S1 and S2, regular. No murmurs, rubs, or gallops. LUNGS: Clear to auscultation bilaterally. No wheeze, rales, or rhonchi. ABDOMEN: Bowel sounds are positive. Soft, nontender and nondistended. EXTREMITIES: No cyanosis, clubbing or edema. ASSESSMENT: 1. Abdominal pain, resolved. 2. Acute congestive heart failure secondary to systolic dysfunction, improved. 3. Pleural effusion, improved. 4. Diabetes type 2. 5. Hypertension. 6. Dyslipidemia. 7. Mediastinal adenopathy. PLAN: The patient is currently comfortable. He is currently going to continue with Amaryl for his diabetes.. The patient is on metoprolol. He is going to be switched over to oral antibiotics with Flagyl and Augmentin. He is going to be followed as an outpatient. I did give him potassium replacement as an outpatient and also, he will get 80 mg potassium prior to leaving the hospital. He was advised to come to my office on 02/17 or 02/20 for repeat blood work. Yuri Albrecht MD [facility] # [id number]
--- NOTE | 2018-02-15 12:31 | PN ---
DATE: 02/15/2018 CARDIOLOGY FOLLOWUP SUBJECTIVE: The patient is ambulating without shortness of breath. PHYSICAL EXAMINATION VITAL SIGNS: Stable. NECK: Negative JVD. LUNGS: Without rales. HEART: Reveals S1 and S2. EXTREMITIES: Without edema. LABORATORY DATA: Laboratories were reviewed and unremarkable. IMPRESSION: 1. Resolution of congestive heart failure. 2. Dilated cardiomyopathy. 3. Coronary artery disease. 4. History of percutaneous transluminal coronary angioplasty and stent. 5. Renal insufficiency. PLAN: Given these findings, the patient is scheduled for discharge today. The patient needs to go home on Lasix. Followup stress test has been ordered. Declan Minaya MD
--- NOTE | 2018-02-15 16:38 | IP.NPCORE ---
Pneumonia Progress Notes - Oxygenation Assessment (REQUIRED) O2 Saturation: 98 Oxygen Delivery Method: Room Air Date: 02/15/18 - Blood Cultures (REQUIRED) Culture drawn: Yes Date:: 02/12/18 Time:: 00:20 - Initial Antibiotic Initial Antibiotic given within Four Hours:: Yes Date:: 02/12/18 Time:: 00:00 - Appropriate Antibiotic Appropriate Antibiotic within 24 hours of Admission:: Yes Current Antibiotic: Cefepime - Pneumonia Vaccine Date:: 02/12/18 Time:: 02:25 - Smoking Cessation Smoking Cessation counseling provided:: No Ex-Smoker (has not smoked in the last 12 months): No Current Smoker - smoking cessation education provided: No
--- NOTE | 2018-02-16 00:05 | PN ---
DATE: 02/15/2018 SUBJECTIVE: The patient is seen early this morning in room 366, bed 1. No fevers, no chills. Comfortable. Case discussed with nursing staff. PHYSICAL EXAMINATION: VITAL SIGNS: Temperature is 98, blood pressure is 130/70, respiratory rate of 18, heart rate of 71. HEENT: Unremarkable. NECK: Supple. LUNGS: Have decreased breath sounds. HEART: Normal S1 and S2. ABDOMEN: Soft, nontender. LABORATORY DATA: Reveals a white count of 8.5, hemoglobin of 12, platelets of 231. BUN of 9, creatinine of 1. Procalcitonin is 0.09. Cultures are negative. Dr. Declan Minaya's note is reviewed. Dr. Albrecht's discharge is reviewed. ASSESSMENT AND PLAN: This is a 67-year-old male with systemic inflammatory response syndrome with acute enteritis and acute on chronic congestive heart failure. Cultures negative. Follow up the lymphadenopathy with Dr. Mcintyre, need a workup as an outpatient. Scot Galloway MD
[2018-02-20 05:50] LABS: ANCA SCREEN NEGATIVE (NEGATIVE)
== END 2018-02-15 11:23 | disposition home or self-care (01) | DRG 391 ==
LOC: ED 21:24 → ERH 02-12 00:23 → OBSVTOIN 02-12 00:23 → ERH 02-12 00:49 → 3RNO 02-12 01:53
PROVIDERS: ADMIT Internal Medicine; ATTEND Internal Medicine Nephrology
DX: K52.9 Noninfective gastroenteritis and colitis, unspecified (principal); I50.21 Acute systolic (congestive) heart failure; I42.0 Dilated cardiomyopathy; I11.0 Hypertensive heart disease with heart failure; E11.65 Type 2 diabetes mellitus with hyperglycemia; I25.10 Atherosclerotic heart disease of native coronary artery without angina pectoris; I27.20 Pulmonary hypertension, unspecified; K21.9 Gastro-esophageal reflux disease without esophagitis; R59.0 Localized enlarged lymph nodes; E78.5 Hyperlipidemia, unspecified; E78.00 Pure hypercholesterolemia, unspecified; K64.9 Unspecified hemorrhoids; N28.9 Disorder of kidney and ureter, unspecified; K57.30 Diverticulosis of large intestine without perforation or abscess without bleeding; I25.2 Old myocardial infarction; Z95.5 Presence of coronary angioplasty implant and graft; Z87.891 Personal history of nicotine dependence; Z79.84 Long term (current) use of oral hypoglycemic drugs; Z87.01 Personal history of pneumonia (recurrent); G47.30 Sleep apnea, unspecified

== ENCOUNTER 2018-03-02 06:37 | Day surgery (SDC) | payer MEDICARE, BC ==
[2018-03-01 06:38] VITALS: BMI 24.9
[2018-03-02] MEDS ORDERED: Lidocaine 2% Inj (20ml) ONE (06:58)
[2018-03-02] MEDS ORDERED: Midazolam 2 MG/2 ML VIAL ONE ×2 (06:59→07:55)
[2018-03-02] MEDS ORDERED: Iodixanol 320 MG/ML 200 ML BOTTLE IV ONE (07:00)
[2018-03-02 07:29] LABS: BASO # 0.05 K/mm3 (0.0-2.0); BASO % 0.7 % (0.0-3.0); EOS # 0.1 (0.0-0.7); EOS % 0.9 % (1.5-5.0); GRAN # 4.71 (1.4-6.5); GRAN % 66.9 % (50.0-68.0); HEMOGLOBIN 14.7 g/dL (14.0-18.0); LYMPH # 1.7 (1.2-3.4); LYMPH % 23.7 % (22.0-35.0); MEAN CELL VOLUME 87.6 fl (80.0-105.0); MEAN CORPUSCULAR HEMOGLOBIN 29.8 pg (25.0-35.0); MONO # 0.6 (0.1-0.6); MONO % 7.8 % (1.0-6.0); RBC 4.93 10^6/uL (3.5-6.1)
[2018-03-02 07:38] LABS: BLOOD UREA NITROGEN 14 mg/dL (7-21); CALCIUM 9.1 mg/dL (8.4-10.5); GFR AFRICAN-AMERICAN > 60; GFR NON-AFRICAN AMERICAN > 60
[2018-03-02 07:47] LABS: INR 0.95 (0.93-1.08); PARTIAL THROMBOPLASTIN TIME 33.4 Seconds (25.1-36.5); PROTHROMBIN TIME 10.9 SECONDS (9.4-12.5)
[2018-03-02] MEDS ORDERED: Potassium Chloride 20 mEq ER Tab PO ONE (07:55)
[2018-03-02] MEDS ORDERED: Iodixanol 320 MG/ML 100 ML BOTTLE IV ONE ×2 (09:14→09:48)
[2018-03-02] MEDS ORDERED: Sodium Chloride 0.9% 1,000 ML IV SCH (11:00)
[2018-03-02] MEDS ORDERED: DOBUTamine 500mg/250ml D5W 500 MG/250 ML BAG IV PRN (11:02)
--- NOTE | 2018-03-02 12:15 | CARDCATH ---
PROCEDURE DATE: 03/02/2018 CARDIAC CATH AND PTCA HISTORY: The patient is a 67-year-old male who presents with an abnormal stress test. The patient's past medical history includes a documented history of an ischemic dilated cardiomyopathy with an echocardiogram revealing an ejection fraction of approximately 30%. He has had an old anterior wall myocardial infarction. He suffers from severe pulmonary hypertension secondary to severe COPD and smoking. In addition, he suffers from diabetes mellitus, hypertension and hypercholesterolemia. He primarily complains of marked shortness of breath with intermittent shortness of breath. Stress test is abnormal. Because of this, a cardiac catheterization was recommended. PROCEDURE: Left heart catheterization with coronary arteriography, left ventriculogram, supra-aortic valvular injection, PTCA and stent of an LAD and PTCA and stent of the circumflex artery. The right femoral artery was cannulated with a 6-Brazilian sheath. There were no complications. I performed moderate sedation, which included the presence of an independent trained observer that assisted in monitoring the patient's level of consciousness and physiologic status. After administration of Versed and fentanyl, my intra service time was 45 minutes. Findings on catheterization revealed a left ventricle that was diffusely dilated and hypokinetic with an estimated ejection fraction of approximately 25-30%. Supra-aortic valvular injection revealed one to two plus aortic insufficiency. The aorta is markedly dilated and diffusely diseased and tortuous going down to the femoral arteries. His coronary anatomy revealed a right dominant circulation. The RCA was markedly ectatic throughout its course with a subtotally occluded PDA. The posterolateral branch emptied into the left ventricle, which was noted in his previous catheterization. His left main artery was a short vessel with the LAD and circumflex artery exiting almost independently. The LAD revealed diffuse atherosclerosis with a patent stent in the proximal portion and an 80% stenosis in the midportion. The diagonal vessel revealed a 90% stenosis at its ostium. The circumflex artery was markedly ectatic and revealed diffuse atherosclerosis throughout its tree. The first obtuse marginal branch revealed a long 90% stenoses from the proximal to the midportion. The AV groove branch of the circumflex artery revealed a 70-80% stenoses. Collaterals are seen gone to the PDA with retrograde filling that also emptied into the PDA into the left ventricle. The patient was started on intravenous Angiomax under fluoroscopic guide, the guiding catheter was placed in the ostium of the left main artery. An 0.014 ATW wire was used to cross the lesion. Predilatation was performed with a 2 balloon. A 2.75 x 15 mm drug-eluting stent was placed and deployed in the mid LAD lesion at 15 atmospheres of pressure. Repeat coronary arteriography revealed an excellent result with no residual stenosis and JAMES III flow. There was preservation of flow into the diagonal vessel. The guide was then brought back and placed into the ostium of the circumflex artery. An 0.014 ATW wire was placed into the high obtuse marginal branch. A 2 balloon was utilized to predilate the lesion. A 2.25 x 22 mm drug-eluting stent was placed and deployed at 14 atmospheres of pressure into the first obtuse marginal branch. Repeat coronary arteriography revealed an acceptable result. Angio-Seal was used to close the femoral artery site. The patient tolerated the procedure well. IMPRESSION: 1. In summary, the procedure was successful percutaneous transluminal coronary angioplasty and stent of a mid left anterior descending lesion. 2. Percutaneous transluminal coronary angioplasty and stent of the first obtuse marginal branch both with drug-eluting stents. 3. His coronary anatomy revealed marked ectatic lesions throughout the right coronary artery and circumflex artery with diffuse coronary artery disease. He suffers from critical lesions in all three vessels. 4. 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 5. Left ventricular function is markedly abnormal with an ejection fraction of 25-30%. 6. 1 to 2+ aortic insufficiency. 7. Diffuse disease of the aorta. PLAN: Given these findings, the patient will need to remain on aspirin indefinitely and Plavix for least a year. I have discussed with the patient about his need to cooperate with better health. He needs to stop smoking given his history of severe COPD and severe pulmonary hypertension. We will give the patient a trial of IV dobutamine. Declan Minaya MD
--- NOTE | 2018-03-02 22:36 | CARD ---
APPROVED REPORT EKG Measurement Heart [id number] [id number] <Conclusion> Sinus bradycardia with premature atrial complexes Possible Left atrial enlargement Left axis deviation Left ventricular hypertrophy ST & T wave abnormality, consider lateral ischemia Abnormal ECG
--- NOTE | 2018-03-02 23:43 | CARD ---
APPROVED REPORT EKG Measurement Heart [id number] <Conclusion> Normal sinus rhythm Left axis deviation Voltage criteria for left ventricular hypertrophy T wave abnormality, consider lateral ischemia Abnormal ECG
[2018-03-03 01:23] VITALS: O2SAT 99
[2018-03-03 06:11] VITALS: TEMP 98.1
[2018-03-03 06:31] LABS: BASO # 0.03 K/mm3 (0.0-2.0); BASO % 0.4 % (0.0-3.0); EOS # 0.1 (0.0-0.7); EOS % 0.7 % (1.5-5.0); GRAN # 4.93 (1.4-6.5); GRAN % 70.2 % (50.0-68.0); HEMOGLOBIN 13.9 g/dL (14.0-18.0); LYMPH # 1.3 (1.2-3.4); LYMPH % 18.5 % (22.0-35.0); MEAN CELL VOLUME 87.4 fl (80.0-105.0); MEAN CORPUSCULAR HEMOGLOBIN 29.7 pg (25.0-35.0); MONO # 0.7 (0.1-0.6); MONO % 10.2 % (1.0-6.0); RBC 4.68 10^6/uL (3.5-6.1); RED CELL DISTRIBUTION WIDTH 14.1 % (11.5-14.5)
[2018-03-03 07:47] LABS: BLOOD UREA NITROGEN 10 mg/dL (7-21); CALCIUM 8.4 mg/dL (8.4-10.5); GFR AFRICAN-AMERICAN > 60; GFR NON-AFRICAN AMERICAN > 60
[2018-03-03] MEDS ORDERED: Potassium Chloride 20 mEq ER Tab PO ONE ×2 (08:05→12:00)
[2018-03-03] MEDS ORDERED: Insulin Reg-LOW-Coverage SC SCH (11:30)
[2018-03-03 12:01] VITALS: BP 150/95; PULSE 65; RESP 18
--- NOTE | 2018-03-03 12:51 | PN ---
DATE: 03/03/2018 CARDIOLOGY FOLLOWUP SUBJECTIVE: The patient is ambulating. His breathing is better. No angina noted. PHYSICAL EXAMINATION: VITAL SIGNS: Blood pressure varies from 140-160 systolic, heart rates in the 80s. NECK: Negative JVD. LUNGS: Without rales. HEART: Reveals S1, S2. EXTREMITIES: Without edema. LABORATORY DATA: Hemoglobin is 13.9. Chemistries: BUN and creatinine stable. The potassium is 2.9 in which replacement has been ordered. IMPRESSION: 1. Stable post percutaneous transluminal coronary angioplasty and stent of a left anterior descending. 2. Ischemic dilated cardiomyopathy. 3. Congestive heart failure, which is improved. 4. Hypercholesterolemia. PLAN: Given these findings, we will discontinue his dobutamine. We will ambulate the patient and if he is stable, the patient will go home today. I have discussed with the patient about his need to stop smoking and begin a cardiac risk reduction program. Declan Minaya MD
--- NOTE | 2018-03-03 18:03 | HP ---
CHIEF COMPLAINT AND HISTORY OF PRESENT ILLNESS: This is a 67-year-old male, who is coming into the hospital for elective cardiac cath. He had an outpatient stress test that was positive. The patient said he was short of breath after the procedure, but he said he is feeling better. He has no complaints of any chest pain, no shortness of breath, no fevers, no chills, no nausea, no vomiting, no dysuria or frequency, no nocturia. REVIEW OF SYSTEMS: All of the review of symptoms are within normal limits except that was mentioned. ALLERGIES: NO KNOWN DRUG ALLERGIES. PAST MEDICAL HISTORY: 1. CHF secondary to systolic dysfunction. 2. Pleural effusion. 3. Diabetes type 2. 4. Hypertension. 5. Dyslipidemia. 6. Mediastinal adenopathy. MEDICATIONS: Has been reviewed on the [facility]. SOCIAL HISTORY: He is , lives with his . He was a former smoker. FAMILY HISTORY: Noncontributory. PHYSICAL EXAMINATION: VITAL SIGNS: Temperature of 98.1, pulse of 90, blood pressure 161/90, respirations 20, O2 saturation 99%, height is 5 feet 4 inches, weight is 145 pounds, BMI is 24.9. GENERAL: The patient lying in bed, uncomfortable, and in no acute distress. HEENT: Atraumatic and normocephalic. Anicteric sclerae. Moist mucosa. Lavelle conjunctivae. No oral lesions. NECK: No JVD, anterior and posterior adenopathy, thyromegaly, or bruits. CARDIOVASCULAR: S1 and S2 regular. No murmur, rubs, or gallop. LUNGS: Clear to auscultation bilaterally. No wheezes, rales, or rhonchi. ABDOMEN: Bowel sounds are positive. Soft, nontender and nondistended. No hepatosplenomegaly. No rebound and no guarding EXTREMITIES: No cyanosis, clubbing, or edema. NEUROLOGIC: No facial asymmetry. Tongue is midline. No uvula deviation. Power is 5/5 upper extremity and lower extremity. Sensation intact in upper extremity and lower extremity. PSYCHIATRIC: He is awake, alert and oriented x3. No anxiety or depression. He has normal affect. GENITOURINARY: No CVA tenderness. VASCULAR: 2+ pulses in the carotid pulses and pedal pulses. SKIN: No erythema or nodules SPINE: Shows normal curvature. LABORATORY DATA: White count of 7, hemoglobin 13.9. He has sodium 141, potassium 3.5. ASSESSMENT: 1. Coronary artery disease with percutaneous coronary intervention status post stent in mid left anterior descending, first obtuse marginal branch. 2. Diabetes type 2. 3. Dyslipidemia. 4. Hypertension. 5. Mediastinal adenopathy. 6. Pulmonary hypertension. PLAN: The patient is currently uncomfortable. He had a stent that was placed yesterday. He had 2 stents, that were placed 1 in the first obtuse marginal branch and then another in the LAD. There was a right dominant circulation. He had an echo done that shows pulmonary hypertension. The patient is currently on dobutamine because of his cardiomyopathy. He is on aspirin, Lipitor. He is on lisinopril for afterload reduction. He is going to continue with his Amaryl. I will await for the input from Cardiology. If the patient is cleared, the patient will be discharged home. CONDITION: Stable. ACTIVITY: Increase as tolerated. FOLLOWUP: Follow up with Dr. Minaya in 1 to 2 weeks. Yuri Albrecht MD
--- NOTE | 2018-03-03 18:58 | CARD ---
APPROVED REPORT EKG Measurement Heart [id number] [id number] <Conclusion> Sinus rhythm with premature atrial complexes Possible Left atrial enlargement Left axis deviation Left ventricular hypertrophy Nonspecific ST abnormality Abnormal ECG
== END 2018-03-03 13:02 | disposition home or self-care (01) ==
LOC: CATH 06:37 → 2RNO 11:07 → CATH 03-03 13:02
PROVIDERS: ATTEND Internal Medicine Nephrology
DX: I25.10 Atherosclerotic heart disease of native coronary artery without angina pectoris (principal); I35.1 Nonrheumatic aortic (valve) insufficiency; I10 Essential (primary) hypertension; I25.5 Ischemic cardiomyopathy; I42.0 Dilated cardiomyopathy; E11.9 Type 2 diabetes mellitus without complications; I27.20 Pulmonary hypertension, unspecified; J44.9 Chronic obstructive pulmonary disease, unspecified; F17.200 Nicotine dependence, unspecified, uncomplicated; E78.00 Pure hypercholesterolemia, unspecified; I25.2 Old myocardial infarction; Z79.84 Long term (current) use of oral hypoglycemic drugs
CPT/HCPCS: 36415 ×2; 80048 ×2; 82948; 85025 ×2; 85610; 85730; 86850; 86900; 93005 ×2; 93458; 93567; 99152; 99153; C1725; C1760; C1769 ×2; C1874 ×2; C1887 ×3; C2629; C9600; C9601; J0583; J1250; J1644 ×2; J2250; J3010; J7030 ×2; Q9966; Q9967